=== PATIENT | female | born 1965 | race Caucasian/White ===

== ENCOUNTER 2016-09-17 10:20 | Emergency (ER) | payer BC, OTHER ==
[~2016-09-17] VITALS: Ht 170.2 cm; Wt 109.2 kg
[~2016-09-17 10:20] MED LIST: B-COTAB18 PO; CHOL2000 PO; CRAN1CAP15 PO; CYM/30 PO; LORA-741 PO; OMEG10007 PO; PANT40TA PO; TOPI50TA16 PO; ZNTT/150 PO
[2016-09-17 10:30] VITALS: TEMP 36; Ht 170.2 cm; Wt 109.2 kg
[2016-09-17] MEDS ORDERED: BND25 PO (11:00)
--- NOTE | 2016-09-17 11:11 | EMERGENCY ROOM VISIT NOTE ---
History First contact with patient: 10:57 Chief Complaint: SHORTNESS OF BREATH Stated Complaint: SOB, LIGHTHEADED, CHEST PAIN X 2 DAYS AGO Nursing Triage Summary: chest pain with SOB and nausea for the past 2 days no cough or cold no LE edema History of Present Illness The patient is a 51 year old female who presents to the Emergency Room via private vehicle accompanied by with complaints of "shortness of breath, lightheaded, chest pain 2 days ago". The patient states that this past Tuesday shortly after scrubbing the floor in her house she developed pain in the left anterior chest. This pain then subsided and she felt well yesterday as she stayed home from work but this morning as she was preparing to go to work she felt worse, minor left anterior chest pain as well as shortness of breath and lightheadedness. She then sat down and states that the chest pain has resolved. She also notes that she has had shortness of breath off and on for some time now. She denies any current symptomatology. There is associated minimal nausea. The patient states that she was in the hospital last year around this time with chest pain and ended up being acid reflux. She states this does not feel the same as reflux. She denies any vomiting, diarrhea, history of heart attacks, history of blood clots, fevers, chills, abdominal pain , dysuria, pelvic discharge, history of high blood pressure, diabetes, recent smoking. She does have borderline cholesterol. No unilateral weakness or speech disturbance. She did have recent surgery in June for an umbilical hernia. Review of Systems A complete 10-point Review of Systems was discussed with the patient, with pertinent positives and negatives listed in the History of Present Illness. All remaining Review of Systems questions can be considered negative unless otherwise specified. Past Medical/Surgical History Medical Problems: (1) No pertinent past medical history Bronchitis, urinary problems, hernia, uterine ablation, tubal ligation, wisdom teeth removal, fibromyalgia, tremors, migraines Family History No pertinent family history Cancer, lung disease, gallbladder disease, kidney disease or stones, tremors, neurofibromatosis Social History Smoking Status: Former Smoker Drug Use: none Marital Status: Housing Status: lives with family Social History: Patient lives at home with spouse and daughter. Current/Historical Medications Scheduled B-Complex Vitamins (Vitamin B Complex), 1 TAB PO QAM Cholecalciferol (Vitamin D3), 1 CAP PO DAILY Cranberry-Vitamin C-Vitamin E (Cranberry), 1 TAB PO QPM Duloxetine Hcl (Cymbalta), 30 MG PO QPM Fish Oil ([place]-3), 1 CAP PO QAM Pantoprazole (Protonix), 40 MG PO QAM Ranitidine (Zantac), 150 MG PO QPM PRN Topiramate (Topamax), 50 MG PO BID Scheduled PRN Diphenhydramine Hcl (Benadryl), 25 MG PO HS PRN for Sleep Lorazepam (Ativan), 0.5-1 MG PO HS PRN for RN Allergies Coded Allergies: Nitrofurantoin (Unverified Allergy, Mild, HIVES, 09/17/16) Penicillins (Unverified Allergy, Mild, HIVES, 09/17/16) Sulfa Antibiotics (Verified Allergy, Mild, "SULFA DRUGS": HIVES, 09/17/16) Amoxicillin (Unverified Allergy, Unknown, HIVES, 09/17/16) Levofloxacin (Verified Allergy, Unknown, HIVES, 09/17/16) Physical Exam Vital Signs Date Time Temp Pulse Resp B/P Pulse Ox O2 Delivery O2 Flow Rate FiO2 09/17/16 15:49 76 20 118/86 96 09/17/16 14:09 85 09/17/16 13:25 85 20 136/81 98 09/17/16 11:53 76 131/89 98 09/17/16 10:49 80 09/17/16 10:30 36.0 96 17 130/88 98 Room Air Physical Exam VITAL SIGNS - Vital signs and nursing notes were reviewed. Patient is afebrile , she is normotensive, she is not tachycardic and is saturating well on room air at 98%. GENERAL -51-year-old female appearing her stated age who is in no acute distress. Communicates well with provider and answers questions appropriately. SKIN - Without rashes. No evidence of breaks in the integument. HEAD - NC/AT. EYES - PERRL with EOMI bilaterally. Sclera anicteric. Palpebral conjunctiva pink and moist with no injection noted. EARS - No deformities of external structures noted on gross examination bilaterally. No hemotympanum External auditory canals without discharge or otorrhea. Tympanic membranes pearly pardo without retraction or bulging. No fluid or purulent material visualized behind the TM. Handle of malleus, umbo, cone of light, pars tensa/flaccid all easily visualized. NOSE - Midline and without cyanosis. No epistaxis or purulent drainage noted. Septum midline without deviation or septal hematoma noted. MOUTH/OROPHARYNX - Without perioral cyanosis. Buccal mucosa pink and moist and without leukoplakia. Tongue midline with equal elevation of palate bilaterally. No tonsillar hypertrophy, erythema, or exudates noted. Good dentition noted. NECK - Neck with FROM. Supple to palpation. No lymphadenopathy noted. No nuchal rigidity. No meningeal signs. LUNGS - Chest wall symmetric without accessory muscle use, intercostals retractions, or central cyanosis. Normal vesicular breath sounds CTA B/L. No wheezes, rales, or rhonchi appreciated. CARDIAC - RRR with S1/S2. No murmur, rubs, or gallops appreciated. ABDOMEN - Abdominal contour without pulsations or visible masses. BS normoactive all four quadrants. No tenderness, palpable masses, hepatosplenomegaly, or ascites noted. EXTREMITIES - No clubbing or peripheral cyanosis. No pretibial edema present. +5 /5 strength noted in UE/LE bilaterally. NEUROLOGIC - Cranial nerves II through XII grossly intact. Sensory intact to light touch throughout. PSYCH - A&Ox3 and cooperates fully with examiner. Pt is very pleasant and interacts well with examiner. Medical Decision & Procedures ER Provider Diagnostic Interpretation: CHEST ONE VIEW PORTABLE CLINICAL HISTORY: Chest pain, SOB COMPARISON STUDY: 08/05/2016 FINDINGS: The cardiac and mediastinal contours are normal. There is no evidence of focal pulmonary consolidation. There is no evidence of failure. No pleural effusions are visualized.[ There is slight deviation of the trachea at the thoracic inlet to the midline. This may indicate a thoracic inlet mass such as a thyroid goiter. This finding remains unchanged the prior study. IMPRESSION: No active disease in the chest. Electronically signed by: Dneis Price M.D. 09/17/2016 12:08 PM Dictated Date/Time: 09/17/2016 12:08 PM [~ rep ct add3]] CT HEAD WITHOUT CONTRAST (CT) CLINICAL HISTORY: Dizziness, lightheadedness, stumbling. COMPARISON STUDY: MRI the brain dated to 71 TECHNIQUE: Axial CT of the brain is performed from the vertex to the skull base. IV contrast was not administered for this examination. CT DOSE: 638.56 mGycm FINDINGS: No intra or extra-axial mass lesions are visualized. There is no CT evidence of acute cortical infarction. There is no evidence of midline shift. There is no acute hemorrhage. No calvarial fractures are visualized. There is no evidence of pathologic ventricular dilatation. There is no evidence of acute sinusitis IMPRESSION: Normal noncontrast head CT for age. Electronically signed by: Denis Price M.D. 09/17/2016 11:46 AM Dictated Date/Time: 09/17/2016 11:[address] ANGIOGRAPHY OF THE CHEST, PULMONARY EMBOLUS PROTOCOL CLINICAL HISTORY: Dyspnea, chest pain and elevated d-dimer. Recent surgery. COMPARISON STUDY: Chest radiograph August 05, 2016 and September 17, 2016. TECHNIQUE: Following IV administration of 118 mL of Optiray-320, helical axial images of the chest were obtained utilizing the pulmonary embolus protocol. Maximal intensity projections and sagittal and coronal reformats were viewed on an independent 3D workstation. IV contrast was administered without complication. CT DOSE: 602.14 mGy.cm FINDINGS: No pulmonary emboli are identified. The heart is mildly enlarged. There is no pericardial effusion. There is no evidence of thoracic aortic dissection. Central airways are patent. No pneumothorax or pleural effusion is present. There are groundglass opacities with mosaic attenuation within the lungs. No consolidation is identified. The bony thorax and visualized portions of the upper abdomen are unremarkable. IMPRESSION: 1. No pulmonary emboli identified. 2. Ground glass opacities with mosaic attenuation within the lungs. The findings may reflect air trapping or mild edema. No consolidation. 3. Mild cardiomegaly. Electronically signed by: Lance Najera M.D. 09/17/2016 1:02 PM Dictated Date/Time: 09/17/2016 12:52 PM Laboratory Results 09/17/16 10:52 Red Blood Count 4.90, Mean Corpuscular Volume 85.1, Mean Corpuscular Hemoglobin 28.6, Mean Corpuscular Hemoglobin Concent 33.6, Mean Platelet Volume 9.6, Neutrophils (%) (Auto) 63.8, Lymphocytes (%) (Auto) 23.9, Monocytes (%) (Auto) 7.4, Eosinophils (%) (Auto) 4.0, Basophils (%) (Auto) 0.7, Neutrophils # (Auto) 3.82, Lymphocytes # (Auto) 1.43, Monocytes # (Auto) 0.44, Eosinophils # (Auto) 0.24, Basophils # (Auto) 0.04 09/17/16 10:52 Test 09/17/16 10:52 09/17/16 11:27 09/17/16 14:02 09/17/16 14:06 White Blood Count 5.98 K/uL (4.8-10.8) Red Blood Count 4.90 M/uL (4.2-5.4) Hemoglobin 14.0 g/dL (12.0-16.0) Hematocrit 41.7 % (37-47) Mean Corpuscular Volume 85.1 fL (80-100) Mean Corpuscular Hemoglobin 28.6 pg (25-34) Mean Corpuscular Hemoglobin Concent 33.6 g/dl (32-36) Platelet Count 293 K/uL (130-400) Mean Platelet Volume 9.6 fL (7.4-10.4) Neutrophils (%) (Auto) 63.8 % Lymphocytes (%) (Auto) 23.9 % Monocytes (%) (Auto) 7.4 % Eosinophils (%) (Auto) 4.0 % Basophils (%) (Auto) 0.7 % Neutrophils # (Auto) 3.82 K/uL (1.4-6.5) Lymphocytes # (Auto) 1.43 K/uL (1.2-3.4) Monocytes # (Auto) 0.44 K/uL (0.11-0.59) Eosinophils # (Auto) 0.24 K/uL (0-0.5) Basophils # (Auto) 0.04 K/uL (0-0.2) RDW Standard Deviation 42.2 fL (36.4-46.3) RDW Coefficient of Variation 13.5 % (11.5-14.5) Immature Granulocyte % (Auto) 0.2 % Immature Granulocyte # (Auto) 0.01 K/uL (0.00-0.02) Prothrombin Time 10.4 SECONDS (9.0-12.0) Prothromb Time International Ratio 1.0 (0.9-1.1) Activated Partial Thromboplast Time 30.5 SECONDS (21.0-31.0) Partial Thromboplastin Ratio 1.2 D-Dimer 1430 ug/L FEU (0-500) Anion Gap 9.0 mmol/L (3-11) Est Creatinine Clear Calc Drug Dose 69.8 ml/min Estimated GFR () 60.2 Estimated GFR (Non- 51.9 BUN/Creatinine Ratio 12.1 (10-20) Calcium Level 9.0 mg/dl (8.5-10.1) Total Bilirubin 0.2 mg/dl (0.2-1) Aspartate Amino Transf (AST/SGOT) 11 U/L (15-37) Alanine Aminotransferase (ALT/SGPT) 26 U/L (12-78) Alkaline Phosphatase 125 U/L (45-117) Total Creatine Kinase 50 U/L (26-192) Creatine Kinase MB < 0.5 ng/ml (0.5-3.6) Creatine Kinase MB Ratio (0-3.0) Total Protein 7.5 gm/dl (6.4-8.2) Albumin 3.6 gm/dl (3.4-5.0) Globulin 3.9 gm/dl (2.5-4.0) Albumin/Globulin Ratio 0.9 (0.9-2) Lipase 117 U/L (73-393) Thyroid Stimulating Hormone (TSH) 2.960 uIu/ml (0.300-4.500) Bedside D-Dimer > 450 ng/mlFEU (0-450) Bedside Troponin I 0.010 ng/ml (0-0.045) AH-Vbw-B-Type Natriuretic Peptide 51 pg/ml (0-900) Urine Color DK YELLOW Urine Appearance CLEAR (CLEAR) Urine pH 7.5 (4.5-7.5) Urine Specific [place] 1.012 (1.000-1.030) Urine Protein NEG (NEG) Urine Glucose (UA) NEG (NEG) Urine Ketones NEG (NEG) Urine Occult Blood NEG (NEG) Urine Nitrite NEG (NEG) Urine Bilirubin NEG (NEG) Urine Urobilinogen NEG (NEG) Urine Leukocyte Esterase NEG (NEG) Influenza Type A (RT-PCR) Neg for Influ A (NEG) Influenza Type A Antigen Neg for Influ A (NEG) Influenza Type B Antigen Neg for Influ B (NEG) Influenza Type B (RT-PCR) Neg for Influ B (NEG) Medical Decision Patient was seen and evaluated as above. After obtaining a thorough history and physical examination I elected to order a stat EKG, apply monitor with continuous pulse ox, initiated IV access and obtain a CT of the head, CBC, CK-MB , see MB, CPK, d-dimer, lipase, TSH, UA clean catch culture if indicated, coagulation studies, [id number] BNP, d-dimer and troponin, chest 1 view portable secondary to subjective and objective examination findings. The patient was asymptomatic upon presentation and was just concerned that she has had left anterior chest pain. Her vitals are stable during her time here in the emergency department. CBC was completely unremarkable. There was no leukocytosis or anemia. Coagulation studies did reveal a within normal limits coagulation cascade, however d-dimer was elevated both [id number] and repeat regular lab d-dimer. This prompted a CT scan of the chest. The CMP revealed a slight elevation in chloride, low AST, elevated alkaline phosphatase at 125, and low CK-MB. Point care troponin was within normal limits. No evidence of heart failure. TSH was within normal limits. The urine was unremarkable. I then elected to obtain a flu swab both rapid and PCR. These were all negative. The chest 1 view portable was unremarkable for acute process but did reveal slight tracheal deviation which was discussed with the patient. This was unchanged from previous study. CT the head was ordered secondary to her having the dizziness and feeling like she was stumbling lately this did not reveal any acute process. The CTA of the chest was also performed secondary to the chest pain and elevated d-dimer, which did not reveal any acute process but did reveal groundglass opacities which was discussed with patient. It is recommended she follow up with a rail specialist for this and she was given a number to call as soon as possible. My attending also personally evaluated the patient. At this time we both agree the patient is likely experiencing a viral process causing her symptomatology and in correlation with her lab work I do not suspect any acute or emergent cardiac or pulmonary causes. I do believe the patient can be managed in the outpatient setting. They were educated upon worrisome symptoms in which to return, were educated upon today's findings to include incidental findings, had questions answered prior to discharge, and were discharged home in good condition. Her EKG appeared to be unchanged from previous. In the evaluation and treatment of this patient following differential diagnoses were entertained: Intracranial abnormality, thyroid abnormality, viral process, pneumonia, acute coronary syndrome, myocardial infarction, pericarditis, pleural effusion, among others. I this time do not suspect any emergent or surgical nature to the patient's pain. Impression Primary Impression: Chest pain Additional Impressions: Alkaline phosphatase elevation Elevated d-dimer Tracheal deviation Ground glass opacity present on imaging of lung Departure Information Dispostion Home / Self-Care Condition GOOD Referrals Matteo Knox M.D. (PCP) Jostin Bonner MD Patient Instructions My [facility] Additional Instructions You were seen in the emergency department for chest pain. Your EKG was unchanged from previous, and her heart chemicals were normal. No evidence of blood clot in the lung. We did find the below findings. There is slight deviation of the trachea at the thoracic inlet to the midline. This may indicate a thoracic inlet mass such as a thyroid goiter. Ground glass opacities with mosaic attenuation within the lungs. The findings may reflect air trapping or mild edema. No consolidation. Please follow up with her family doctor and the lung specialist listed above for this. Please call your family doctor first thing tomorrow to schedule follow-up as well as Dr. Bonner (Lung specialist). Please have basic labs such as a CBC and CMP repeated. Alkaline phosphatase was elevated. Please have these repeated with your family doctor. Please return to the emergency department with new/concerning symptoms. Problem Qualifiers Primary Impression: Chest pain Chest pain type: unspecified Qualified Codes: R07.9 - Chest pain, unspecified
[2016-09-17 11:23] LABS: BASO % 0.7 %; BASO ABS # 0.04 K/uL (0-0.2); COMPLETE YES; HEMATOCRIT 41.7 % (37-47); IG% 0.2 %; LYMPH % 23.9 %; LYMPH ABS # 1.43 K/uL (1.2-3.4); MEAN CELL VOLUME 85.1 fL (80-100); MEAN CORPUSCULAR HEMOGLOBIN 28.6 pg (25-34); MEAN CORPUSCULAR HGB CONC 33.6 g/dl (32-36); MEAN PLATELET VOLUME 9.6 fL (7.4-10.4); MONO % 7.4 %; NEUT % 63.8 %; PLATELET COUNT 293 K/uL (130-400); WHITE BLOOD COUNT 5.98 K/uL (4.8-10.8)
[2016-09-17 11:31] LABS: ALT/SGPT 26 U/L (12-78); AST/SGOT 11 U/L (15-37); BLOOD UREA NITROGEN 15 mg/dl (7-18); BUN/CREATININE RATIO 12.1 (10-20); CARBON DIOXIDE 24 mmol/L (21-32); CHLORIDE 110 mmol/L (98-107); GLUCOSE 92 mg/dl (70-99); POTASSIUM 3.5 mmol/L (3.5-5.1); SODIUM 143 mmol/L (136-145)
[2016-09-17 11:38] LABS: PARTIAL THROMBOPLASTIN RATIO 1.2; PROTHROMBIN TIME (PATIENT) 10.4 SECONDS (9.0-12.0)
[2016-09-17 11:42] LABS: ALB/GLOB RATIO 0.9 (0.9-2); ALKALINE PHOSPHATASE 125 U/L (45-117)
[2016-09-17 11:46] LABS: POINT OF CARE PRO-BNP 51 pg/ml (0-900)
--- NOTE | 2016-09-17 11:47 | DIAGNOSTIC IMAGING REPORT ---
CT HEAD WITHOUT CONTRAST (CT) CLINICAL HISTORY: Dizziness, lightheadedness, stumbling. COMPARISON STUDY: MRI the brain dated to TECHNIQUE: Axial CT of the brain is performed from the vertex to the skull base. IV contrast was not administered for this examination. CT DOSE: 638.56 mGycm FINDINGS: No intra or extra-axial mass lesions are visualized. There is no CT evidence of acute cortical infarction. There is no evidence of midline shift. There is no acute hemorrhage. No calvarial fractures are visualized. There is no evidence of pathologic ventricular dilatation. There is no evidence of acute sinusitis IMPRESSION: Normal noncontrast head CT for age. Electronically signed by: Denis Price M.D. 09/17/2016 11:46 AM Dictated Date/Time: 09/17/2016 11:45 AM
[2016-09-17] MEDS ORDERED: OPTIRAY 320 IV PRN (12:00)
--- NOTE | 2016-09-17 12:10 | DIAGNOSTIC IMAGING REPORT ---
CHEST ONE VIEW PORTABLE CLINICAL HISTORY: Chest pain, SOB COMPARISON STUDY: 08/05/2016 FINDINGS: The cardiac and mediastinal contours are normal. There is no evidence of focal pulmonary consolidation. There is no evidence of failure. No pleural effusions are visualized.[ There is slight deviation of the trachea at the thoracic inlet to the midline. This may indicate a thoracic inlet mass such as a thyroid goiter. This finding remains unchanged the prior study. IMPRESSION: No active disease in the chest. Electronically signed by: Denis Price M.D. 09/17/2016 12:08 PM Dictated Date/Time: 09/17/2016 12:08 PM
--- NOTE | 2016-09-17 13:04 | DIAGNOSTIC IMAGING REPORT ---
CT ANGIOGRAPHY OF THE CHEST, PULMONARY EMBOLUS PROTOCOL CLINICAL HISTORY: Dyspnea, chest pain and elevated d-dimer. Recent surgery. COMPARISON STUDY: Chest radiograph August 05, 2016 and September 17, 2016. TECHNIQUE: Following IV administration of 118 mL of Optiray-320, helical axial images of the chest were obtained utilizing the pulmonary embolus protocol. Maximal intensity projections and sagittal and coronal reformats were viewed on an independent 3D workstation. IV contrast was administered without complication. CT DOSE: 602.14 mGy.cm FINDINGS: No pulmonary emboli are identified. The heart is mildly enlarged. There is no pericardial effusion. There is no evidence of thoracic aortic dissection. Central airways are patent. No pneumothorax or pleural effusion is present. There are groundglass opacities with mosaic attenuation within the lungs. No consolidation is identified. The bony thorax and visualized portions of the upper abdomen are unremarkable. IMPRESSION: 1. No pulmonary emboli identified. 2. Ground glass opacities with mosaic attenuation within the lungs. The findings may reflect air trapping or mild edema. No consolidation. 3. Mild cardiomegaly. Electronically signed by: Lance Najera M.D. 09/17/2016 1:02 PM Dictated Date/Time: 09/17/2016 12:52 PM
[2016-09-17 14:37] LABS: URINE APPEARANCE CLEAR (CLEAR); URINE BILIRUBIN NEG (NEG); URINE COLOR DK YELLOW; URINE NITRITE NEG (NEG); URINE PH 7.5 (4.5-7.5); URINE SPECIFIC GRAVITY 1.012 (1.000-1.030); UROBILINOGEN NEG (NEG); ZZUR CULT IF INDIC CLEAN CATCH NO
[2016-09-17 14:49] LABS: MANUAL MICROSCOPIC REQUIRED? NO; REVIEW REQ? NO
--- NOTE | 2016-09-17 15:25 | EMERGENCY ROOM VISIT NOTE ---
ED Visit Note First contact with patient: 10:57 I have personally evaluated and examined this patient. I agree with assessment and plan of Prosper Sanders PA-C. Patient is a 51-year-old female without significant past medical history who presents with a greater than 24-hour history of chest pain. D-dimer was initially elevated prompted a CT scan of the chest, CT scan of the chest revealed groundglass opacities. I personally evaluated the patient there is no evidence of hypoxic aspiratory failure, she is not tachypnic contrary to the vital signs listed in the chart. I explained the differential, I think this represents a viral process, interstitial lung disease has not been ruled out, and she does not have any high risk factors requiring Tamiflu. Accordingly I have advised her to follow-up with her primary care doc in 2-3 weeks for repeat evaluation and we have given her contact information for Dr. Bonner of pulmonology.
[2016-09-17 15:49] VITALS: BP 118/86; PULSE 76; O2SAT 96
[2016-09-17 16:11] LABS: INFLUENZA A PCR Neg for Influ A (NEG); INFLUENZA B PCR Neg for Influ B (NEG)
[2016-10-13] MEDS ORDERED: VNTHFA/IN INH (11:07)
[2016-10-13] MEDS ORDERED: ACET-1311 PO (11:08)
== END 2016-09-17 15:51 | disposition home or self-care (01) ==
LOC: C.EDB 10:22 → C.EDC 15:51
DX: R07.9 Chest pain, unspecified (principal); R74.8 Abnormal levels of other serum enzymes; J39.8 Other specified diseases of upper respiratory tract; J81.1 Chronic pulmonary edema; I51.7 Cardiomegaly; Z87.891 Personal history of nicotine dependence; Z79.899 Other long term (current) drug therapy; Z88.0 Allergy status to penicillin; Z88.1 Allergy status to other antibiotic agents; Z88.2 Allergy status to sulfonamides; Z88.8 Allergy status to other drugs, medicaments and biological substances; Z80.9 Family history of malignant neoplasm, unspecified; Z83.79 Family history of other diseases of the digestive system; Z84.1 Family history of disorders of kidney and ureter

== ENCOUNTER 2016-09-20 09:28 | Emergency (ER) | payer BC ==
[~2016-09-20] VITALS: Ht 170.2 cm; Wt 107.9 kg
[~2016-09-20 09:28] MED LIST changes: +BND25 PO
[2016-09-20 09:30] VITALS: TEMP 36.3; Ht 170.2 cm; Wt 107.9 kg
[2016-09-20 09:52] VITALS: O2SAT 96
[2016-09-20] MEDS ORDERED: MULT-506 PO (10:07)
[2016-09-20 10:38] LABS: BASO % 0.7 %; BASO ABS # 0.04 K/uL (0-0.2); COMPLETE YES; HEMATOCRIT 44.1 % (37-47); IG% 0.2 %; LYMPH % 33.8 %; LYMPH ABS # 1.89 K/uL (1.2-3.4); MEAN CELL VOLUME 84.3 fL (80-100); MEAN CORPUSCULAR HEMOGLOBIN 28.3 pg (25-34); MEAN CORPUSCULAR HGB CONC 33.6 g/dl (32-36); MEAN PLATELET VOLUME 9.7 fL (7.4-10.4); MONO % 8.4 %; NEUT % 53.9 %; PLATELET COUNT 303 K/uL (130-400); RED BLOOD COUNT 5.23 M/uL (4.2-5.4); WHITE BLOOD COUNT 5.59 K/uL (4.8-10.8)
[2016-09-20] MEDS ORDERED: CEFEPIME IV 1,000 MG in DEXTROSE 5% 100ML 100 ML IV STA (10:44)
--- NOTE | 2016-09-20 10:44 | DIAGNOSTIC IMAGING REPORT ---
CHEST ONE VIEW PORTABLE CLINICAL HISTORY: Chest Pain dyspnea COMPARISON STUDY: 09/17/2016 FINDINGS: Lungs remain clear. Diaphragms smooth. Costophrenic angles are sharp. Left superior matter. Mediastinal soft tissue prominence is unaltered. This is most consistent with that as of a substernal thyroid. IMPRESSION: No acute process. Lungs are considered clear. Electronically signed by: Anibal Plunkett M.D. 09/20/2016 10:42 AM Dictated Date/Time: 09/20/2016 10:40 AM
[2016-09-20 10:52] LABS: BLOOD UREA NITROGEN 17 mg/dl (7-18); BUN/CREATININE RATIO 15.7 (10-20); CALCIUM 9.7 mg/dl (8.5-10.1); CARBON DIOXIDE 23 mmol/L (21-32); CHLORIDE 108 mmol/L (98-107); GLUCOSE 95 mg/dl (70-99); POTASSIUM 3.9 mmol/L (3.5-5.1); SODIUM 142 mmol/L (136-145)
[2016-09-20 15:57] VITALS: BP 125/81; PULSE 79; O2SAT 97
--- NOTE | 2016-09-20 16:04 | EMERGENCY ROOM VISIT NOTE ---
History Report prepared by La: Maryjo Huynh Under the Supervision of: Dr. Marcos Holley D.O. First contact with patient: 10:11 Chief Complaint: SHORTNESS OF BREATH Stated Complaint: SOB, CHEST PAIN Nursing Triage Summary: pt c/o sob and weakness sx started tuesday was seen here tuesday. sx not getting better. dx with lung problem cannot get in until next week History of Present Illness The patient is a 51 year old female who presents to the Emergency Room with complaints of persistent shortness of breath that began 2-3 months ago, but worsened on Tuesday. She currently rates her discomfort as a 4/10 in severity. The patient states that she has noticed the shortness of breath all the time, but states that it had worsened on Tuesday. She states that she was evaluated in the emergency department Tuesday and her work up was fairly normal. The patient states that she developed chest burning on Tuesday, and has additionally described her discomfort as a heaviness and sharp pain. She states that her chest discomfort has been intermittent and notices it after exertion, such as cleaning. The patient states that she noticed heaviness in her chest last night, and noticed burning this morning. She states that her discomfort was alleviated on her way to the emergency department this morning. The patient notes arm numbness, but is unsure if she slept on her arm wrong. She notes that she started with a cough yesterday, stating that she started using peak flow. The patient notes bilateral leg swelling. She states that she has had a feeling of being unwell for the past several days. The patient denies any history of asthma, COPD, diabetes, or heard disease. She denies any history of heart disease. The patient denies being a smoker. Pt denies headache, change in vision, fevers, nausea, vomiting, diarrhea, pain with urination, and melena. Source of History: patient Onset: 2-3 months ago Position: other (global) Symptom Intensity: 4/10 Quality: other (shortness of breath) Timing: other (persistent) Associated Symptoms: + chest pain Review of Systems See HPI for pertinent positives & negatives. A total of 10 systems reviewed and were otherwise negative. Past Medical & Surgical Medical Problems: (1) No pertinent past medical history Family History No pertinent family history Social History Smoking Status: Never Smoker Drug Use: none Marital Status: Housing Status: lives with family Current/Historical Medications Scheduled B-Complex Vitamins (Vitamin B Complex), 1 TAB PO QAM Cholecalciferol (Vitamin D3), 1 CAP PO DAILY Cranberry-Vitamin C-Vitamin E (Cranberry), 1 TAB PO QPM Duloxetine Hcl (Cymbalta), 30 MG PO QPM Fish Oil (Remus-3), 1 CAP PO QAM Multivitamin (Multivitamin), 1 TAB PO DAILY Pantoprazole (Protonix), 40 MG PO QAM Ranitidine (Zantac), 150 MG PO QPM PRN Topiramate (Topamax), 50 MG PO BID Scheduled PRN Diphenhydramine Hcl (Benadryl), 25 MG PO HS PRN for Sleep Lorazepam (Ativan), 0.5-1 MG PO HS PRN for RN Allergies Coded Allergies: Nitrofurantoin (Unverified Allergy, Mild, HIVES, 09/20/16) Penicillins (Unverified Allergy, Mild, HIVES, 09/20/16) Sulfa Antibiotics (Verified Allergy, Mild, "SULFA DRUGS": HIVES, 09/20/16) Amoxicillin (Unverified Allergy, Unknown, HIVES, 09/20/16) Levofloxacin (Verified Allergy, Unknown, HIVES, 09/20/16) Physical Exam Vital Signs Date Time Temp Pulse Resp B/P Pulse Ox O2 Delivery O2 Flow Rate FiO2 09/20/16 15:57 79 18 125/81 97 Room Air 09/20/16 14:54 77 16 119/80 96 09/20/16 13:10 85 14 103/72 96 Room Air 09/20/16 12:09 70 15 107/73 98 Room Air 09/20/16 10:49 76 14 120/75 96 Room Air 09/20/16 09:52 96 Room Air 09/20/16 09:52 73 17 96 Room Air 09/20/16 09:51 72 09/20/16 09:30 98 Room Air 09/20/16 09:30 36.3 83 20 144/94 98 Room Air Physical Exam GENERAL: Sitting up in bed, disheveled, nontoxic. EYE EXAM: normal conjunctiva. OROPHARYNX: no exudate, no erythema, lips, buccal mucosa, and tongue normal and mucous membranes are moist NECK: No JVD. supple, no nuchal rigidity, no adenopathy, non-tender LUNGS: Clear to auscultation. Normal chest wall mechanics HEART: no murmurs, S1 normal and S2 normal ABDOMEN: abdomen soft, non-tender, normo-active bowel sounds, no masses, no rebound or guarding. BACK: Back is symmetrical on inspection and there is no deformity, no midline tenderness, no CVA tenderness. SKIN: no rashes and no bruising UPPER EXTREMITIES: upper extremities are grossly normal. LOWER EXTREMITIES: No pitting edema. Calves are equal bilaterally. NEURO EXAM: Normal sensorium, cranial nerves II-XII grossly intact, normal speech, no gross weakness of arms, no gross weakness of legs. No drift. Finger to nose intact. Gross sensation intact. Medical Decision & Procedures ER Provider Diagnostic Interpretation: Xray results per the radiologist and my interpretation. Other results have been interpreted by the radiologist and reviewed by me. CHEST ONE VIEW PORTABLE CLINICAL HISTORY: Chest Pain dyspnea COMPARISON STUDY: 09/17/2016 FINDINGS: Lungs remain clear. Diaphragms smooth. Costophrenic angles are sharp. Left superior matter. Mediastinal soft tissue prominence is unaltered. This is most consistent with that as of a substernal thyroid. IMPRESSION: No acute process. Lungs are considered clear. Electronically signed by: Anibal Plunkett M.D. 09/20/2016 10:42 AM Dictated Date/Time: 09/20/2016 10:40 AM Laboratory Results 09/20/16 09:42 Red Blood Count 5.23, Mean Corpuscular Volume 84.3, Mean Corpuscular Hemoglobin 28.3, Mean Corpuscular Hemoglobin Concent 33.6, Mean Platelet Volume 9.7, Neutrophils (%) (Auto) 53.9, Lymphocytes (%) (Auto) 33.8, Monocytes (%) (Auto) 8.4, Eosinophils (%) (Auto) 3.0, Basophils (%) (Auto) 0.7, Neutrophils # (Auto) 3.01, Lymphocytes # (Auto) 1.89, Monocytes # (Auto) 0.47, Eosinophils # (Auto) 0.17, Basophils # (Auto) 0.04 09/20/16 09:42 Test 09/20/16 09:42 09/20/16 10:50 09/20/16 12:02 White Blood Count 5.59 K/uL (4.8-10.8) Red Blood Count 5.23 M/uL (4.2-5.4) Hemoglobin 14.8 g/dL (12.0-16.0) Hematocrit 44.1 % (37-47) Mean Corpuscular Volume 84.3 fL (80-100) Mean Corpuscular Hemoglobin 28.3 pg (25-34) Mean Corpuscular Hemoglobin Concent 33.6 g/dl (32-36) Platelet Count 303 K/uL (130-400) Mean Platelet Volume 9.7 fL (7.4-10.4) Neutrophils (%) (Auto) 53.9 % Lymphocytes (%) (Auto) 33.8 % Monocytes (%) (Auto) 8.4 % Eosinophils (%) (Auto) 3.0 % Basophils (%) (Auto) 0.7 % Neutrophils # (Auto) 3.01 K/uL (1.4-6.5) Lymphocytes # (Auto) 1.89 K/uL (1.2-3.4) Monocytes # (Auto) 0.47 K/uL (0.11-0.59) Eosinophils # (Auto) 0.17 K/uL (0-0.5) Basophils # (Auto) 0.04 K/uL (0-0.2) RDW Standard Deviation 41.3 fL (36.4-46.3) RDW Coefficient of Variation 13.6 % (11.5-14.5) Immature Granulocyte % (Auto) 0.2 % Immature Granulocyte # (Auto) 0.01 K/uL (0.00-0.02) Anion Gap 11.0 mmol/L (3-11) Est Creatinine Clear Calc Drug Dose 75.7 ml/min Estimated GFR () 66.8 Estimated GFR (Non- 57.7 BUN/Creatinine Ratio 15.7 (10-20) Calcium Level 9.7 mg/dl (8.5-10.1) Total Creatine Kinase 49 U/L (26-192) Creatine Kinase MB < 0.5 ng/ml (0.5-3.6) Creatine Kinase MB Ratio (0-3.0) Influenza Type A Antigen Neg for Influ A (NEG) Influenza Type B Antigen Neg for Influ B (NEG) Troponin I < 0.015 ng/ml (0-0.045) Laboratory results per my review. Medications Administered Medications (Trade) Dose Ordered Sig/Stan Route Start Time Stop Time Status Last Admin Dose Admin Cefepime HCl/ Dextrose (Maxipime IV/D5 100ml) 111.3 ml @ 200 mls/hr ONE STAT IV 09/20/16 10:44 09/20/16 10:47 DC 09/20/16 11:55 200 MLS/HR ECG Indication: chest pain, SOB/dyspnea Rate (beats per minute): 73 Rhythm: sinus rhythm Findings: no ectopy, other (normal axis) Comparison ECG Date: 09/17/16 Change: no significant change ED Course ED COURSE: Vital signs were reviewed and showed normal vitals The patients medical record was reviewed The above diagnostic studies were performed and reviewed. ED treatments and interventions as stated above. 1012: The patient was evaluated in room A10. A complete history and physical examination was performed. 1044: Ordered Cefepime HCl 1000 mg/Dextrose 111.3 ml @ 200 mls/hr IV. 1149: I reevaluated the patient and she is doing okay. I discussed her exam findings with her. She is going to have a redraw of her troponin and is going to have a stress test. 1204: I spoke to Baljit Rasmussen, Cardiology YASH regarding the patient. He is going to stress the patient. 1541: I rediscussed the patients case with Dr. Finch, Cardiology. He states that the echo looks great and states that the patient is ready to go home. 1550: Upon reevaluation, the patient is resting comfortably.I discussed my findings with the patient and she understands and agrees with the treatment plan. Based on the patients age, coexisting illnesses, exam and lab findings the decision to treat as an outpatient was made. The patient remained stable while under my care. The patient appeared well at the time of discharge. Medical Decision Differential diagnoses includes but is not limited to pneumonia, bronchitis, COPD/Asthma exacerbation, pneumothorax, pulmonary embolism, congestive heart failure, acute coronary syndrome, myocardial infarction, pericarditis, pulmonary embolus, aortic dissection, pneumonia, pneumothorax, musculoskeletal, shingles, esophageal. Patient is a 51-year-old female who presents the ER for shortness of breath which has been worsening for the past several months. It has worsened over the past several days. She notes that she is having exertional chest pain associated with this. She was seen here on Tuesday and had a cardiac workup along with a CT PE for a positive d-dimer which was negative with the exception of groundglass. CBC along with BMP and troponin was negative 2. Influenza A and B were negative. Chest x-ray was unremarkable. With her symptoms and her age she is a low risk for cardiac issues and consequently a stress test was performed which was negative per cardiology. Patient was discharged to follow- up with her PCP. I do believe the symptoms are secondary to the groundglass opacity in her lower lobe which does not appear to be infectious as she has no fevers or new cough. There is no respiratory distress. She is discharged feeling significantly better to follow-up with her primary care doctor. Discussed with Pt concerning signs and symptoms to watch out for. Pt was instructed to follow up with their PCP and discussed with the patient their option to return to the ED at anytime for persistent or worsening symptoms. The appropriate anticipatory guidance and out-patient management, including indications for return to the emergency department, were explained at length to the patient and understood. Consults Time Called: 1155 Consulting Physician: Jamil Barrios PA-C Returned Call: 1204 I spoke to Jamil Barrios PA-C regarding the patient. He is going to stress the patient. Impression Primary Impression: Precordial chest pain Additional Impression: Shortness of breath Scribe Attestation The scribe's documentation has been prepared under my direction and personally reviewed by me in its entirety. I confirm that the note above accurately reflects all work, treatment, procedures, and medical decision making performed by me. Departure Information Dispostion Home / Self-Care Referrals Matteo Knox M.D. (PCP) Forms HOME CARE DOCUMENTATION FORM, IMPORTANT VISIT INFORMATION Patient Instructions Chest Pain - [facility], [facility] Additional Instructions Please follow up with your primary care doctor with in the next 24 hours. Any worsening of your symptoms, please return to the ED immediately. This includes worsening chest pain with exertion, shortness of breath, passing out, or any other concerning signs or symptoms from your standpoint. Your heart enzymes along with an EKG and stress test were normal. Please be sure to follow-up with her primary care doctor within the week. Please follow with her youth career specialist as previously directed on her last visit. Problem Qualifiers
--- NOTE | 2016-09-20 16:16 | EXERCISE STRESS ECHO ---
*NOTICE TO RECEIVING REPUBLICAN AGENCY This information is strictly Confidential and protected under [place] law. [place] law prohibits you from making any further disclosure of this information unless further disclosure is expressly permitted by the written consent of the person to whom it pertains or is authorized by law. A general authorization for the release of medical or other information is not sufficient for this purpose. Hospital accepts no responsibility if the information is made available to any other person, INCLUDING THE PATIENT. Interpretation Summary * Name: LIZET GARCÍA Study Date: 09/20/2016 12:51 PM BP: 128/82 mmHg * Patient Location: [place] [id number] HR: 100 * : 1965 (M/d/yyyy) Gender: Female Height: 67 in * Age: 51 yrs Ethnicity: [place] Weight: 237 lb * Ordering Physician: Gabo Rasmussen * Performed By: Gretta Carias RDCS * * Reason For Study: Chest pain * BSA: 2.2 m2 * Normal hemodynamic response to exercise. * No significant valvular abnormalities. * The stress ECG response was normal * This was a normal stress echocardiogram. * The stress echocardiogram is negative for inducible ischemia. * RESTING STUDY: Normal left ventricular cavity size, myocardial thickness, wall motion, and systolic function. * Stress wall motion was normal. * No arrhythmia were noted with stress. Procedure Details * ECHOEX, CPT #07804 * A contrast injection of Definity was performed to improve assessment of LV function. * Contrast was injected into an intravenous site in the right arm. * One vial of Definity ultrasound contrast was diluted in normal saline to a total volume of 10 ml. A total of '6' ml of solution was administered during imaging. * Lot # [id number] of Definity utilized for procedure. * Expiration date AUG 07. * The attending nurse who injected the contrast agent was Nitesh Peres RN. Left Ventricle * The left ventricle is normal in size. * There is normal left ventricular wall thickness. * Ejection Fraction = 55-60%. * A full diastolic examination was done with clinical findings of Class I diastolic dysfunction. * Resting wall motion: Normal. Stress wall motion: Appropriate increase in Left ventricular systolic function and decrease in cavity size. No stress induced segmental wall motion abnormalities. * The left ventricular ejection fraction increases normally with stress. The left ventricular end-systolic cavity size reduces post-stress (normal response). The left ventricular wall motion with stress is normal. Right Ventricle * The right ventricle is normal in size and function. Atria * The left atrial size is normal. * Right atrial size is normal. Mitral Valve * The mitral valve is normal. * There is no mitral valve stenosis. * There is no mitral regurgitation noted. Tricuspid Valve * The tricuspid valve is normal. * There is no tricuspid stenosis. * There is trace tricuspid regurgitation. Aortic Valve * The aortic valve is trileaflet. * The aortic valve opens well. * Aortic stenosis is absent. * No aortic regurgitation is present. Pulmonic Valve * The pulmonic valve is not well visualized. * Trace pulmonic valvular regurgitation. Great Vessels * The aortic root is normal size. Pericardium * There is no pericardial effusion. Stress Parameters * Normal sinus rhythm, normal ST segments. * The stress ECG response was normal * The stress portion of this study was personally supervised by the undersigned interpreting physician. * Rest heart rate was '100' BPM. * Rest blood pressure was '128/82' * Maximum heart rate achieved was 184 bpm. * Maximum heart rate was 109 % of maximum age-predicted heart rate. * Maximum blood pressure was '151/75' * Total exercise time was '4:40' * Maximum exercise MET level achieved was '6.60' METS * Maximum treadmill speed was '2.50' miles per hour. * Maximum treadmill elevation was '12.00'% grade. * Exercise was terminated due to 'achieving target heart rate and patient fatique' MMode 2D Measurements and Calculations IVSd 0.93 cm LVIDd 4.1 cm LVIDs 2.8 cm LVPWd 0.75 cm IVS/LVPW 1.2 FS 31.0 % EDV(Teich) 74.9 ml ESV(Teich) 30.6 ml EF(Teich) 59.1 % EDV(cubed) 69.7 ml ESV(cubed) 22.9 ml EF(cubed) 67.1 % LV mass(C)d 104.8 grams LV mass(C)dI 48.2 grams/m\S\2 SV(Teich) 44.3 ml SI(Teich) 20.4 ml/m\S\2 SV(cubed) 46.8 ml SI(cubed) 21.5 ml/m\S\2 Ao root diam 3.1 cm Ao root area 7.6 cm\S\2 ACS 2.3 cm LA dimension 2.6 cm asc Aorta Diam 2.9 cm LA/Ao 0.82 LVAd ap4 21.9 cm\S\2 LVLd ap4 7.6 cm EDV(MOD-sp4) 53.3 ml EDV(sp4-el) 53.6 ml LVAs ap4 12.7 cm\S\2 LVLs ap4 6.5 cm ESV(MOD-sp4) 21.9 ml ESV(sp4-el) 21.0 ml EF(MOD-sp4) 58.8 % EF(sp4-el) 60.8 % LVAd ap2 21.0 cm\S\2 LVLd ap2 7.5 cm EDV(MOD-sp2) 50.1 ml EDV(sp2-el) 49.8 ml LVAs ap2 12.7 cm\S\2 LVLs ap2 6.8 cm ESV(MOD-sp2) 20.2 ml ESV(sp2-el) 20.0 ml EF(MOD-sp2) 59.7 % EF(sp2-el) 59.8 % LVLd %diff -0.60 % EDV(MOD-bp) 51.6 ml LVLs %diff 5.0 % ESV(MOD-bp) 21.6 ml EF(MOD-bp) 58.2 % SV(MOD-sp4) 31.3 ml SI(MOD-sp4) 14.4 ml/m\S\2 SV(MOD-sp2) 29.9 ml SI(MOD-sp2) 13.8 ml/m\S\2 SV(MOD-bp) 30.0 ml SI(MOD-bp) 13.8 ml/m\S\2 SV(sp4-el) 32.6 ml SI(sp4-el) 15.0 ml/m\S\2 SV(sp2-el) 29.8 ml SI(sp2-el) 13.7 ml/m\S\2 Doppler Measurements and Calculations MV E max kun 62.7 cm/sec MV A max kun 79.0 cm/sec MV E/A 0.79 MV dec time 0.32 sec Ao V2 max 111.3 cm/sec Ao max PG 5.0 mmHg Ao max PG (full) 0.82 mmHg LV V1 max PG 4.1 mmHg LV V1 max 101.7 cm/sec PA V2 max 89.6 cm/sec PA max PG 3.2 mmHg PA acc slope 468.3 cm/sec\S\2 PA acc time 0.15 sec PI max kun 149.3 cm/sec PI max PG 8.9 mmHg PI dec slope 149.6 cm/sec\S\2 PI P1/2t 292.3 msec PA pr(Accel) 9.3 mmHg
[2016-10-13] MEDS ORDERED: VNTHFA/IN INH (11:07)
[2016-10-13] MEDS ORDERED: ACET-1311 PO (11:08)
== END 2016-09-20 15:59 | disposition home or self-care (01) ==
LOC: C.EDB 09:29 → C.EDA 15:59
DX: R07.2 Precordial pain (principal); R06.02 Shortness of breath; Z79.899 Other long term (current) drug therapy; Z88.0 Allergy status to penicillin; Z88.1 Allergy status to other antibiotic agents; Z88.2 Allergy status to sulfonamides; Z88.8 Allergy status to other drugs, medicaments and biological substances

== ENCOUNTER 2016-09-21 18:14 | Emergency (ER) | payer BC ==
[~2016-09-21] VITALS: Ht 170.2 cm; Wt 107.5 kg
[~2016-09-21 18:14] MED LIST changes: +MULT-506 PO
[2016-09-21 18:16] VITALS: TEMP 36.9; Ht 170.2 cm; Wt 107.5 kg
[2016-09-21 18:30] VITALS: O2SAT 99
[2016-09-21] MEDS ORDERED: LORAZEPAM 2 MG/ML 1 ML VIAL IV STA (18:33)
--- NOTE | 2016-09-21 18:55 | DIAGNOSTIC IMAGING REPORT ---
SINGLE VIEW CHEST CLINICAL HISTORY: Atypical chest pain. FINDINGS: An AP, portable, upright chest radiograph is compared to study dated 09/20/2016 and correlated with chest CT dated 09/17/2016. The examination is degraded by portable technique, large body habitus, and patient rotation. The cardiomediastinal silhouette is unremarkable. Chronic interstitial thickening is unchanged. The lungs and pleural spaces are clear. No pneumothorax is seen. The skeletal structures are osteopenic. The bony thorax is grossly intact. IMPRESSION: No acute cardiopulmonary abnormality and no change from recent prior studies. Electronically signed by: Rubio Blake M.D. 09/21/2016 6:54 PM Dictated Date/Time: 09/21/2016 6:53 PM
[2016-09-21] MEDS ORDERED: ALUMINUM/MAGNESIUM SUSP 30 ML UDC ONE (19:03)
[2016-09-21] MEDS ORDERED: LIDOCAINE HCL 2% VISC SOLN 20 ML UDC ONE ×2 (19:03→19:06)
[2016-09-21] MEDS: GI COCKTAIL PO STA ×2 (19:05→19:08)
[2016-09-21 20:02] LABS: BASO % 0.2 %; BASO ABS # 0.02 K/uL (0-0.2); COMPLETE YES; EOS % 1.7 %; HEMATOCRIT 41.3 % (37-47); IG% 0.2 %; LYMPH ABS # 1.65 K/uL (1.2-3.4); MEAN CELL VOLUME 84.1 fL (80-100); MEAN CORPUSCULAR HEMOGLOBIN 28.5 pg (25-34); MEAN CORPUSCULAR HGB CONC 33.9 g/dl (32-36); MEAN PLATELET VOLUME 9.7 fL (7.4-10.4); NEUT % 72.9 %; PLATELET COUNT 274 K/uL (130-400); RED BLOOD COUNT 4.91 M/uL (4.2-5.4)
[2016-09-21 20:16] LABS: BLOOD UREA NITROGEN 14 mg/dl (7-18); CALCIUM 9.3 mg/dl (8.5-10.1); CARBON DIOXIDE 24 mmol/L (21-32); CHLORIDE 110 mmol/L (98-107); GLUCOSE 97 mg/dl (70-99); POTASSIUM 3.8 mmol/L (3.5-5.1); SODIUM 142 mmol/L (136-145)
[2016-09-21] MEDS ORDERED: ACETAMINOPHEN 500 MG TAB PO STA (20:59)
[2016-09-21] MEDS ORDERED: ALBUT/IPRATROP 3MG/0.5MG NEB 3 ML VIAL INH STA (21:48)
--- NOTE | 2016-09-21 22:04 | Medical Consult ---
Consultation Date of Consultation: Sep 21, 2016. Attending Physician: Past Medical/Surgical History Medical Problems: (1) Nausea, vomiting, and diarrhea Status: Acute (2) Precordial chest pain Status: Acute (3) Precordial chest pain Status: Acute Family History No pertinent family history This is a 51 y/o F with a recent history of B/L burning CP and SOB. She has been to the ER 3 times within a week for the above complaints. She has not had abnormal EKGs and has not had elevated troponins. She had a stress echo completed 11/18 which was entirely within normal limits. A CT of the chest was obtained on 09/17 which showed ground glass opacities with mosaic attenuation within the lungs. This did not provide a specific diagnosis or etiology for her current complaints although it would lead us to believe that her condition is pulmonary rather than cardiac related. She has returned to the ER this evening as she does not believe she is improving and is increasingly concerned regarding her persistent symptoms. She has not had fevers, n/v, diaphoresis or lightheadedness. She has not exhibited hypoxia. Social History Smoking Status: Former Smoker Drug Use: none Marital Status: Housing Status: lives with family Allergies Coded Allergies: Nitrofurantoin (Unverified Allergy, Mild, HIVES, 09/21/16) Penicillins (Unverified Allergy, Mild, HIVES, 09/21/16) Sulfa Antibiotics (Verified Allergy, Mild, "SULFA DRUGS": HIVES, 09/21/16) Amoxicillin (Unverified Allergy, Unknown, HIVES, 09/21/16) Levofloxacin (Verified Allergy, Unknown, HIVES, 09/21/16) Review of Systems Constitutional: No chills, No fever, No sweats Eyes: No eye pain, No worsening of vision ENT: No hearing loss, No nasal symptoms, No unusual epistaxis Respiratory: + dyspnea on exertion, + shortness of breath, No cough, No sputum , No wheezing Cardiovascular: + chest pain, No PND, No claudication, No edema, No orthopnea Abdomen: No nausea, No pain, No vomiting Musculoskeletal: No joint pain, No muscle pain Genitourinary - Female: No dysuria, No urinary frequency, No urinary urgency Neurologic: No memory loss, No paralysis, No weakness Psychiatric: No depression symptoms Endocrine: No fatigue Hematologic / Lymphatic: No abnormal bleeding/bruising Integumentary: No rash Allergic / Immunologic: No environmental allergies Physical Exam Date Time Temp Pulse Resp B/P Pulse Ox O2 Delivery O2 Flow Rate FiO2 09/21/16 21:09 105 20 149/93 95 Room Air 09/21/16 20:19 83 18 127/79 99 Room Air 09/21/16 18:30 99 Room Air 09/21/16 18:21 99 Room Air 09/21/16 18:16 36.9 113 18 167/75 98 Room Air General Appearance: WD/WN, no apparent distress Head: normocephalic, atraumatic Eyes: normal inspection, PERRL, EOMI ENT: normal ENT inspection, hearing grossly normal, TMs normal, pharynx normal Neck: supple, no adenopathy, thyroid normal, no JVD Respiratory/Chest: chest non-tender, lungs clear, normal breath sounds, no respiratory distress, no accessory muscle use Cardiovascular: regular rate, rhythm, no edema, no gallop, no JVD, no murmur, normal peripheral pulses Abdomen/GI: normal bowel sounds, non tender, soft Back: normal inspection, no CVA tenderness Extremities/Musculoskelatal: normal inspection, no calf tenderness, normal capillary refill, no pedal edema, normal range of motion 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2 % Neutrophils # (Auto) 6.34 K/uL Lymphocytes # (Auto) 1.65 K/uL Monocytes # (Auto) 0.52 K/uL Eosinophils # (Auto) 0.15 K/uL Basophils # (Auto) 0.02 K/uL RDW Standard Deviation 40.4 fL RDW Coefficient of Variation 13.4 % Immature Granulocyte % (Auto) 0.2 % Immature Granulocyte # (Auto) 0.02 K/uL Sodium Level 142 mmol/L Potassium Level 3.8 mmol/L Chloride Level 110 mmol/L Carbon Dioxide Level 24 mmol/L Anion Gap 8.0 mmol/L Blood Urea Nitrogen 14 mg/dl Creatinine 1.00 mg/dl Est Creatinine Clear Calc Drug Dose 83.1 ml/min Estimated GFR () 75.0 Estimated GFR (Non- 64.7 BUN/Creatinine Ratio 14.0 Random Glucose 97 mg/dl Calcium Level 9.3 mg/dl Total Creatine Kinase 44 U/L Creatine Kinase MB < 0.5 ng/ml Creatine Kinase MB Ratio Troponin I < 0.015 ng/ml Assessment & Plan This is a 51 y/o F with a recent history of B/L burning CP and SOB. She has been to the ER 3 times within a week for the above complaints. She has not had abnormal EKGs and has not had elevated troponins. She had a stress echo completed 11/18 which was entirely within normal limits. A CT of the chest was obtained on 09/17 which showed ground glass opacities with mosaic attenuation within the lungs. This did not provide a specific diagnosis or etiology for her current complaints although it would lead us to believe that her condition is pulmonary rather than cardiac related. She has returned to the ER this evening as she does not believe she is improving and is increasingly concerned regarding her persistent symptoms. She has not had fevers, n/v, diaphoresis or lightheadedness. She has not exhibited hypoxia. Her EKG and labs/trop are once again WNL AT present I have had an extensive discussion with the pt and the ER MD. Although there may be a lung process leading to her symptoms, it is highly unlikely that the process is acute and a hospital stay would not likely be beneficial. The pt has an appt with a hogshead salvage on 09/29 which is reasonable under the circumstances. Considering the above the medical service will advise on D/C for outpt f/u as planned - we have also advised that she have a breathing treatment while in the ER to see if this has a palliative effect and she can then be D/Cd with an inhaler pending her appt. Total time for this consult including review of stress test, CT, EKG extensive lab review - discussion with pt and ER attending 36 min
--- NOTE | 2016-09-21 22:27 | EMERGENCY ROOM VISIT NOTE ---
History Report prepared by La: Shane Lao Under the Supervision of: Dr. Troy Samuel M.D. First contact with patient: 18:27 Chief Complaint: CARDIAC ASSESSMENT Stated Complaint: CHEST PAIN, SOB Nursing Triage Summary: triage note: pt reports increasing symptoms since she was seen here twice this week pt stated increasing sob, weakness, chills, buring in the chest across for days , back ache and muscle ache in the left bicep dx with virus and mildly enlarged heart History of Present Illness The patient is a 51 year old female who presents to the Emergency Room with complaints of worsening left sided chest pain beginning two days prior to arrival. She describes her pain as both burning and sharp, and she currently rates her discomfort as a 5/10 in severity. The patient associates shortness of breath and weakness with today's symptoms. She states her symptoms do not feel similar to an episode she experienced one year ago. The patient notes she had a recent change in medication for her acid reflux. She states she has been seen in the ED the past two days for the same symptoms. The patient notes she had a stress test performed yesterday that was normal, along with a CT of her chest during one of her ED visits. She states she was sent home with antibiotics yesterday. The patient denies recent alcohol use and recent syncopal episodes. 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 A total of 10 systems reviewed and were otherwise negative. Past Medical & Surgical Medical Problems: (1) No pertinent past medical history Family History No pertinent family history Social History Smoking Status: Former Smoker Drug Use: none Marital Status: Housing Status: lives with family Current/Historical Medications Scheduled B-Complex Vitamins (Vitamin B Complex), 1 TAB PO QAM Cholecalciferol (Vitamin D3), 1 CAP PO DAILY Cranberry-Vitamin C-Vitamin E (Cranberry), 1 TAB PO QPM Duloxetine Hcl (Cymbalta), 30 MG PO QPM Fish Oil (Cable-3), 1 CAP PO QAM Multivitamin (Multivitamin), 1 TAB PO DAILY Pantoprazole (Protonix), 40 MG PO QAM Ranitidine (Zantac), 150 MG PO QPM PRN Topiramate (Topamax), 50 MG PO BID Scheduled PRN Diphenhydramine Hcl (Benadryl), 25 MG PO HS PRN for Sleep Lorazepam (Ativan), 0.5-1 MG PO HS PRN for RN Allergies Coded Allergies: Nitrofurantoin (Unverified Allergy, Mild, HIVES, 09/21/16) Penicillins (Unverified Allergy, Mild, HIVES, 09/21/16) Sulfa Antibiotics (Verified Allergy, Mild, "SULFA DRUGS": HIVES, 09/21/16) Amoxicillin (Unverified Allergy, Unknown, HIVES, 09/21/16) Levofloxacin (Verified Allergy, Unknown, HIVES, 09/21/16) Physical Exam Vital Signs Date Time Temp Pulse Resp B/P Pulse Ox O2 Delivery O2 Flow Rate FiO2 09/21/16 23:06 96 18 149/96 94 Room Air 09/21/16 21:09 105 20 149/93 95 Room Air 09/21/16 20:19 83 18 127/79 99 Room Air 09/21/16 18:30 99 Room Air 09/21/16 18:21 99 Room Air 09/21/16 18:16 36.9 113 18 167/75 98 Room Air Physical Exam GENERAL: Patient is anxious appearing and in mild distress. HEENT: No acute trauma, normocephalic atraumatic, mucous membranes moist, no nasal congestion, no scleral icterus. NECK: No stridor, no adenopathy, no meningismus, trachea is midline. LUNGS: No dyspnea. Clear to auscultation and equal bilaterally. No wheeze, no rhonchi. HEART: Mildly tachycardic and regular rhythm. No murmurs, rubs, gallops appreciated. ABDOMEN: Soft, nontender, bowel sounds positive, no masses appreciated, no peritonitis. BACK: No midline tenderness, no CVA tenderness EXTREMITIES: Normal motion all extremities, no cyanosis, no edema. NEUROLOGIC: Alert and oriented, no acute motor or sensory deficits, no focal weakness, cranial nerves grossly intact. SKIN: No rash, no jaundice, no diaphoresis. Medical Decision & Procedures ER Provider Diagnostic Interpretation: X ray results are stated below per my interpretation and the radiologist's interpretation. SINGLE VIEW CHEST CLINICAL HISTORY: Atypical chest pain. FINDINGS: An AP, portable, upright chest radiograph is compared to study dated 09/20/2016 and correlated with chest CT dated 09/17/2016. The examination is degraded by portable technique, large body habitus, and patient rotation. The cardiomediastinal silhouette is unremarkable. Chronic interstitial thickening is unchanged. The lungs and pleural spaces are clear. No pneumothorax is seen. The skeletal structures are osteopenic. The bony thorax is grossly intact. IMPRESSION: No acute cardiopulmonary abnormality and no change from recent prior studies. Electronically signed by: Rubio Blake M.D. 09/21/2016 6:54 PM Laboratory Results 09/21/16 19:40 Red Blood Count 4.91, Mean Corpuscular Volume 84.1, Mean Corpuscular Hemoglobin 28.5, Mean Corpuscular Hemoglobin Concent 33.9, Mean Platelet Volume 9.7, Neutrophils (%) (Auto) 72.9, Lymphocytes (%) (Auto) 19.0, Monocytes (%) (Auto) 6.0, Eosinophils (%) (Auto) 1.7, Basophils (%) (Auto) 0.2, Neutrophils # (Auto) 6.34, Lymphocytes # (Auto) 1.65, Monocytes # (Auto) 0.52, Eosinophils # (Auto) 0.15, Basophils # (Auto) 0.02 09/21/16 19:40 Test 09/21/16 19:40 White Blood Count 8.70 K/uL (4.8-10.8) Red Blood Count 4.91 M/uL (4.2-5.4) Hemoglobin 14.0 g/dL (12.0-16.0) Hematocrit 41.3 % (37-47) Mean Corpuscular Volume 84.1 fL (80-100) Mean Corpuscular Hemoglobin 28.5 pg (25-34) Mean Corpuscular Hemoglobin Concent 33.9 g/dl (32-36) Platelet Count 274 K/uL (130-400) Mean Platelet Volume 9.7 fL (7.4-10.4) Neutrophils (%) (Auto) 72.9 % Lymphocytes (%) (Auto) 19.0 % Monocytes (%) (Auto) 6.0 % Eosinophils (%) (Auto) 1.7 % Basophils (%) (Auto) 0.2 % Neutrophils # (Auto) 6.34 K/uL (1.4-6.5) Lymphocytes # (Auto) 1.65 K/uL (1.2-3.4) Monocytes # (Auto) 0.52 K/uL (0.11-0.59) Eosinophils # (Auto) 0.15 K/uL (0-0.5) Basophils # (Auto) 0.02 K/uL (0-0.2) RDW Standard Deviation 40.4 fL (36.4-46.3) RDW Coefficient of Variation 13.4 % (11.5-14.5) Immature Granulocyte % (Auto) 0.2 % Immature Granulocyte # (Auto) 0.02 K/uL (0.00-0.02) Anion Gap 8.0 mmol/L (3-11) Est Creatinine Clear Calc Drug Dose 83.1 ml/min Estimated GFR () 75.0 Estimated GFR (Non- 64.7 BUN/Creatinine Ratio 14.0 (10-20) Calcium Level 9.3 mg/dl (8.5-10.1) Total Creatine Kinase 44 U/L (26-192) Creatine Kinase MB < 0.5 ng/ml (0.5-3.6) Creatine Kinase MB Ratio (0-3.0) Troponin I < 0.015 ng/ml (0-0.045) Laboratory results as reviewed by me. Medications Administered Medications (Trade) Dose Ordered Sig/Stan Route Start Time Stop Time Status Last Admin Dose Admin Lorazepam (Ativan Inj) 1 mg NOW STAT IV 09/21/16 18:33 09/21/16 18:34 DC 09/21/16 18:54 1 MG Al Hydroxide/Mg Hydroxide (Maalox Susp) 30 ml STK-MED ONCE .ROUTE 09/21/16 19:03 09/21/16 19:04 DC 09/21/16 19:08 30 ML Lidocaine HCl (Viscous Lidocaine 2% Soln) 20 ml STK-MED ONCE .ROUTE 09/21/16 19:03 09/21/16 19:04 DC 09/21/16 19:08 20 ML Acetaminophen (Tylenol Tab) 1,000 mg NOW STAT PO 09/21/16 20:59 09/21/16 21:00 DC 09/21/16 21:08 1,000 MG Albuterol/ Ipratropium (Duoneb) 3 ml NOW STAT INH 09/21/16 21:48 09/21/16 21:49 DC 09/21/16 21:48 3 ML Albuterol (Ventolin Hfa Inhaler) 2 puffs NOW ONCE INH 09/21/16 22:30 09/21/16 22:31 DC 09/21/16 22:30 2 PUFFS ECG Indication: chest pain Rate (beats per minute): 87 Rhythm: normal sinus Findings: no acute ischemic change, no ectopy ED Course 1829: The patient was evaluated in room A9B. A complete history and physical exam was performed. 1832: Ordered GI Cocktail 30 ml PO, Ativan Inj 1 mg IV. 2058: Ordered Tylenol Tab 1,000 mg PO. 2122: Reevaluated the patient at this time, and she is less anxious but still feels the pain across her chest. 2147: Ordered Dupneb 3 ml INH. 2226: I spoke to VIN Clayton (Hospitalist) about the patient's case, and he recommended giving the patient a Duoneb and to send her home. 2229: Ordered Albuterol 2 puffs INH. 2231: Reevaluated the patient. Discussed results and discharge instructions: She verbalized understanding and agreement. The patient is ready for discharge. 2247: Discussed what the hospitalist said about having him go home as an outpatient with an inhaler. The patient understands and is ready to go home. Medical Decision Differential: Cardiac Ischemia (STEMI, NSTEMI, Unstable Angina, etc), Aortic Dissection, Arrhythmia, Pulmonary Embolism, Pneumonia, Pneumothorax, MSK, Infectious, Pericarditis/Myocarditis, Esophageal Rupture, Gastrointestinal, amongst other pathologies entertained. 51 yr old female arrives for 3rd day in a row for persistent mid sternal bandlike pain. She has had multiple negative trops and EKGs with normal stress echo yesterday and CT PE study that showed some ground glass opacity in lungs without other findings. She is stable, and actually much improved with ativan. She notes this is worse at home and SOB is worse at home. She is concerned that this is her heart. She has no cough no fever no wbc elevation and I feel infection is unlikely. She is not having ACS. I discussed case with Dr Carr who evaluated patient and advised discharge with inhaler after duoneb treatment. She is not septic. Discussed that we are always open and if worsening symptoms or other concerns we are here to evaluation and help her. Consults Time Called: 2225 Consulting Physician: VIN Clayton (Hospitalist) Returned Call: [phone] I spoke to VIN Clayton (Hospitalist) about the patient's case, and he recommended giving the patient a Duoneb and to send her home. Impression Primary Impression: Mid sternal chest pain Scribe Attestation The scribe's documentation has been prepared under my direction and personally reviewed by me in its entirety. I confirm that the note above accurately reflects all work, treatment, procedures, and medical decision making performed by me. Departure Information Dispostion Home / Self-Care Referrals Matteo Knox M.D. (PCP) Forms IMPORTANT VISIT INFORMATION Patient Instructions ED Chest Pain Atypical Unkn Cause, My [facility]
[2016-09-21] MEDS ORDERED: ALBUTEROL HFA 8 GM INHALER INH ONE (22:30)
[2016-09-21 23:06] VITALS: BP 149/96; PULSE 96; O2SAT 94
[2016-10-13] MEDS ORDERED: VNTHFA/IN INH (11:07)
[2016-10-13] MEDS ORDERED: ACET-1311 PO (11:08)
== END 2016-09-21 23:07 | disposition home or self-care (01) ==
LOC: C.EDB 18:15 → C.EDA 23:07
DX: R07.2 Precordial pain (principal); R06.02 Shortness of breath; K21.9 Gastro-esophageal reflux disease without esophagitis; Z79.899 Other long term (current) drug therapy; Z87.891 Personal history of nicotine dependence

== ENCOUNTER 2016-11-03 07:55 | Inpatient (IN) | payer BC ==
[2016-10-13 11:09] VITALS: BMI 37.0
--- NOTE | 2016-10-13 11:56 | PAT Medication Instructions ---
Service Date Oct 13, 2016. Current Home Medication List Acetaminophen (Tylenol), 325 MG PO PRN Albuterol Hfa (Ventolin Hfa), 1-2 PUFFS INH Q6H PRN for RN Cholecalciferol (Vitamin D3), 1 CAP PO QAM Diphenhydramine Hcl (Benadryl), 25 MG PO HS PRN for Sleep Duloxetine Hcl (Cymbalta), 30 MG PO QPM Lorazepam (Ativan), 0.5-1 MG PO HS PRN for RN Pantoprazole (Protonix), 40 MG PO QAM Ranitidine (Zantac), 150 MG PO QPM PRN Topiramate (Topamax), 50 MG PO BID Medication Instructions For Your Scheduled Surgery - Hold the following medications the morning of surgery: Cholecalciferol (Vitamin D3), 1 CAP PO QAM - Take the following medications the morning of surgery with a sip of water: Topiramate (Topamax), 50 MG PO BID Pantoprazole (Protonix), 40 MG PO QAM Acetaminophen (Tylenol), 325 MG PO PRN (if needed) Albuterol Hfa (Ventolin Hfa), 1-2 PUFFS INH Q6H PRN for RN (if needed- bring with you to hospital on day of surgery) - Take the following medications as scheduled the night before surgery: Topiramate (Topamax), 50 MG PO BID Ranitidine (Zantac), 150 MG PO QPM PRN Lorazepam (Ativan), 0.5-1 MG PO HS PRN for RN Duloxetine Hcl (Cymbalta), 30 MG PO QPM Diphenhydramine Hcl (Benadryl), 25 MG PO HS PRN for Sleep Acetaminophen (Tylenol), 325 MG PO PRN Albuterol Hfa (Ventolin Hfa), 1-2 PUFFS INH Q6H PRN for RN If you have any questions please call us at [phone] or [phone] ( Jessica) or [phone]
[~2016-11-03] VITALS: Ht 170.2 cm; Wt 107.7 kg
[2016-11-03] VITALS (9 sets, daily range): BP systolic 109–142; BP diastolic 69–91; PULSE 74–94; TEMP 35.7–36.7; O2SAT 91–96; Ht 170.2 cm; Wt 107.7 kg
[~2016-11-03 07:55] MED LIST changes: +ACET-1311 PO; -B-COTAB18 PO; -CRAN1CAP15 PO; +LACTATED RINGER'S 1000ML 1,000 ML IV SCH; -MULT-506 PO; -OMEG10007 PO; +VNTHFA/IN INH
[2016-11-03] MEDS ORDERED: CLINDAMYCIN IV 900 MG in DEXTROSE 5% ADD-VANTAGE 100ML 100 ML IV SCH (08:30)
[2016-11-03] MEDS ORDERED: ONDANSETRON INJ 2 MG/ML 2 ML VIAL IV PRN ×2 (09:30→12:45)
[2016-11-03] MEDS ORDERED: EpHEDrine SULFATE INJ 50 MG/ML AMP IV PRN (09:30)
[2016-11-03] MEDS ORDERED: ATROPINE SULFATE 0.1 MG/ML 5ML SYR IV PRN (09:30)
[2016-11-03] MEDS ORDERED: PHENYLEPHRINE 100MCG/ML 5ML SYR IV PRN (09:30)
--- NOTE | 2016-11-03 09:30 | History & Physical Bridge Note ---
H&P Re-Evaluation Bridge Note: I have examined the patient, reviewed the History & Physical and in the interval since the performance of the History & Physical I have noted the following changes of clinical significance: No changes noted
[2016-11-03] MEDS ORDERED: ROCURONIUM BROMIDE 10 MG/ML 5 ML VIAL ONE (09:49)
[2016-11-03] MEDS ORDERED: MIDAZOLAM HCL 1 MG/ML 2ML VIAL ONE (09:49)
[2016-11-03] MEDS ORDERED: FENTANYL CITRATE INJ 50 MCG/1 ML 2 ML VIAL ONE ×3 (09:49→12:13)
[2016-11-03] MEDS ORDERED: PROPOFOL IV EMULSION 10 MG/ML 20 ML VIAL IV ONE (09:49)
[2016-11-03] MEDS ORDERED: SUCCINYLCHOLINE CHLORIDE 20 MG/ML 10 ML VIAL IV ONE (09:49)
[2016-11-03] MEDS ORDERED: LIDOCAINE HCL 2% 2 ML VIAL (20MG/ML) ONE (09:49)
[2016-11-03] MEDS ORDERED: LIDOCAINE/EPINEPHRINE 1% 20 ML VIAL ONE (09:56)
[2016-11-03] MEDS ORDERED: THROMBIN 5000 UNITS KIT ONE (09:56)
[2016-11-03] MEDS ORDERED: BACITRACIN OINT 15 GM TUBE ONE (09:56)
[2016-11-03] MEDS ORDERED: ONDANSETRON INJ 2 MG/ML 2 ML VIAL ONE ×2 (12:12)
[2016-11-03] MEDS ORDERED: DEXAMETHASONE SOD INJ 4 MG/ML VIAL ONE (12:12)
[2016-11-03] MEDS: LACTATED RINGER'S 1000ML 1,000 ML IV SCH ×2 (12:38→22:14)
--- NOTE | 2016-11-03 12:38 | [facility] Operative Report ---
Operative Report Operative Date Nov 03, 2016. Pre-Operative Diagnosis Substernal thyroid goiter Post-Operative Diagnosis SAME Procedure(s) Performed TOTAL THYROIDECTOMY INCLUDING SUBSTERNAL PORTION ON LEFT Surgeon Dr. Jeferson Lopez Insulation Mechanic Surgeon(s) Meme Aguiar PA-C Estimated Blood Loss 100ML Findings VERY LARGE LEFT SUBSTERNAL GOITER CAUSING TRACHEAL DEVIATION TO THE LEFT Specimens A: Right thyroid lobe double stitch portillo superior pole and single stitch portillo isthmus B: Left thyroid lobe double stitch portillo superior pole and single stitch portillo isthmus I attest to the content of the Intraoperative Record and any orders documented therein. Any exceptions are noted below.
[2016-11-03] MEDS ORDERED: LORAZEPAM 0.5 MG TAB PO PRN (12:45)
[2016-11-03] MEDS ORDERED: HYDROCODONE/ACETAMOPHEN 5/325MG TAB PO PRN (12:45)
[2016-11-03] MEDS ORDERED: ALBUTEROL HFA 8 GM INHALER INH PRN (12:45)
--- NOTE | 2016-11-03 13:21 | OPERATIVE REPORT ---
DATE OF OPERATION: 11/03/2016 PREOPERATIVE DIAGNOSIS: Left substernal multinodular goiter. POSTOPERATIVE DIAGNOSIS: Same. PROCEDURE: Total thyroidectomy with excision of substernal goiter on the left. SURGEON: Dr. Lopez. TANKER DRIVER: Meme Aguiar PA-C. ESTIMATED BLOOD LOSS: 100 mL. FINDINGS: Very large left substernal goiter and enlarged right thyroid lobe as well. SPECIMENS: Right and left thyroid lobe sent separately for permanent pathological assessment. DRAINS: None. COMPLICATIONS: None. INDICATIONS FOR THE PROCEDURE: The patient is a 51-year-old female who was incidentally found to have a large left substernal goiter with tracheal deviation to the right on a CT angiogram to work up shortness of breath. The patient does have orthopnea which is likely related to her enlarged thyroid gland with left substernal component causing tracheal shift to the right hand side and some compression. She presents for the above-mentioned procedure on an inpatient elective basis. DETAILS OF PROCEDURE: After informed consent had been obtained from the patient, the patient was wheeled to the operating room and placed on the operating table in the supine position. Monitors were placed. After induction of general endotracheal anesthesia with a size 7 nerve integrity monitor endotracheal tube the patient's head and neck were gently extended and a marking pen was used to outline the planned 8 cm incision in a natural skin crease 2 fingerbreadths above the level of clavicles. A total of 3 mL of 1% lidocaine with 1:100,000 epinephrine was used to inject the skin and subcutaneous tissues overlying the planned incision site. The skin of the neck and chest were then prepped and draped in the usual sterile fashion. A #15 scalpel was used to make the incision through the skin, subcutaneous tissue, and platysma. Subplatysmal flaps were raised superiorly to the level of the thyroid notch and inferiorly to the level of the clavicles. The median raphe of the strap muscles was divided using Bovie electrocautery. Due to the size of the thyroid gland the strap muscles were divided transversely in the mid portion of them using a Harmonic scalpel. Dissection was first carried on the right hand side. The middle thyroid vein as well as superior and inferior thyroid vascular pedicles were divided using a Harmonic scalpel adjacent to the thyroid capsule. Dissection was carried lateral to medial with care to identify and preserve the recurrent laryngeal nerve as well as superior and inferior parathyroid candidates. The thyroid gland was at the isthmus using Harmonic scalpel. Orienting sutures were placed on the right thyroid lobectomy specimen which was sent off for permanent pathological assessment. The left side was then addressed in a similar fashion. On this side, there was a large substernal component which was dissected using blunt dissection as well as Harmonic scalpel. This went down significantly into the mediastinum and caused tracheal compression and tracheal deviation to the right hand side. After the left side was removed, the wound was copiously irrigated and suctioned. Bipolar cautery was used to achieve adequate hemostasis. Small pieces of Surgicel followed by topical spray thrombin were placed into the bilateral tracheoesophageal grooves for added hemostatic effect. The divided strap muscles were then reapproximated using several simple interrupted 3-0 Vicryl sutures. The resutured strap muscles were then sutured in the midline using a simple running interlocking 3-0 Vicryl suture. The platysma was closed with deep 4-0 Monocryl sutures. The skin was then closed with a simple running subcuticular 5-0 Monocryl suture. The incision was cleansed and dried. Dermabond was applied to the incision. This marked the end of the case. The patient tolerated the procedure well. There were no apparent complications. The patient was extubated and transferred to recovery room in stable condition. I attest to the content of the Intraoperative Record and any orders documented therein. Any exceptio ns are noted below.
[2016-11-03] MEDS ORDERED: HYDROmorphone INJ 1 MG/ML SYR ONE (13:27)
[2016-11-03] MEDS: HYDROmorphone INJ 2 MG/ML SYR/VIAL IV PRN ×2 (13:32→13:39)
--- NOTE | 2016-11-03 14:33 | Anesthesiology Progress Note ---
Anesthesia Post Op Note Date & Time Nov 03, 2016 at 14:34 Vital Signs Pain Intensity: 3 Vital Signs Past 12 Hours Date Time Temp Pulse Resp B/P Pulse Ox O2 Delivery O2 Flow Rate FiO2 11/03/16 13:55 36.4 75 16 135/75 92 Room Air 11/03/16 13:45 88 14 119/85 92 Room Air 11/03/16 13:35 98 14 128/73 96 Diffusion Mask 10 11/03/16 13:25 93 14 133/77 96 Diffusion Mask 10 11/03/16 13:16 99 14 115/72 97 Diffusion Mask 10 11/03/16 13:07 36.1 104 14 121/68 96 Diffusion Mask 10 11/03/16 08:17 36.4 75 18 122/91 94 Room Air Notes Mental Status: alert / awake / arousable, participated in evaluation Pt Amnestic to Procedure: Yes Nausea / Vomiting: adequately controlled Pain: adequately controlled Airway Patency, RR, SpO2: stable & adequate BP & HR: stable & adequate Hydration State: stable & adequate Anesthetic Complications: no major complications apparent
[2016-11-03] MEDS ORDERED: MoRPHine SULFATE 2 MG/ML CARP IV PRN (17:45)
[2016-11-03] MEDS: ACETAMINOPHEN 325 MG TAB PO PRN (18:02)
[2016-11-03 18:33] LABS: CALCIUM 8.4 mg/dl (8.5-10.1); MAGNESIUM 2.1 mg/dl (1.8-2.4); PHOSPHORUS 3.1 mg/dl (2.5-4.9)
[2016-11-03] MEDS: TOPIRAMATE 50 MG TAB PO SCH (20:41)
[2016-11-03] MEDS: RANITIDINE HCL 150 MG TAB PO SCH (20:41)
[2016-11-03] MEDS ORDERED: DULOXETINE (CYMBALTA) 30 MG CAP PO SCH (21:00)
[2016-11-04 01:21] LABS: CALCIUM 7.8 mg/dl (8.5-10.1); PHOSPHORUS 3.2 mg/dl (2.5-4.9)
[2016-11-04] MEDS ORDERED: CALCIUM CHLORIDE 10% 10 ML SYR IV STA (01:31)
[2016-11-04] MEDS ORDERED: CALCIUM CHLORIDE 10% 2,000 MG in SODIUM CHLORIDE 0.9% 50ML 50 ML IV SCH (02:00)
[2016-11-04] MEDS: CALCIUM 600MG + VIT D 400 IU TAB PO SCH ×3 (02:03→12:10)
[2016-11-04] MEDS: CALCIUM CHLORIDE 10% 1,000 MG in SODIUM CHLORIDE 0.9% 50ML 50 ML IV SCH ×2 (02:27→03:10)
[2016-11-04 04:07] VITALS: BP 110/73; PULSE 63; TEMP 36.4; O2SAT 93
[2016-11-04] MEDS ORDERED: LEVOTHYROXINE 175 MCG TAB PO SCH (06:00)
[2016-11-04 06:43] LABS: MAGNESIUM 2.1 mg/dl (1.8-2.4)
[2016-11-04 07:33] VITALS: BP 123/76; PULSE 73; TEMP 36.1; O2SAT 93
[2016-11-04 07:41] LABS: PHOSPHORUS 4.6 mg/dl (2.5-4.9)
--- NOTE | 2016-11-04 07:42 | ENT PROGRESS NOTE ---
DATE: 11/04/2016 The patient is postoperative day 1 status post total thyroidectomy including large left substernal goiter. The patient has done postoperatively, but had mildly low calcium requiring IV calcium and oral calcium supplementation. The patient had some mild perioral numbness which has resolved with the administration of 2 gm of IV calcium as well as starting calcium and vitamin D supplementation. The patient has no complaints this morning. She is afebrile and her vital signs are stable. On examination she has a normal voice. Her thyroidectomy incision is healing well with perhaps a mild fluid collection, but no hematoma. Laboratory examination this morning shows a normal calcium of 10.0. She does have mild low albumin at 3.2 which might spuriously lower the calcium rate. IMPRESSION/RECOMMENDATIONS: 51-year-old female postoperative day 1 status post total thyroidectomy. She did require IV and oral calcium supplementation. I would like to check her labs once more at noon and determine whether or not she is suitable for discharge at that time. Most likely she will go home on a calcium and vitamin D taper over the next 4 weeks.
[2016-11-04] MEDS: ACETAMINOPHEN 325 MG TAB PO PRN (07:48)
[2016-11-04] MEDS: RANITIDINE HCL 150 MG TAB PO SCH (09:00)
[2016-11-04] MEDS ORDERED: PANTOprazole SOD 40 MG TAB PO SCH (09:00)
[2016-11-04] MEDS ORDERED: CHOLECALCIFEROL 1000 INTER.UNIT TAB PO SCH (09:00)
[2016-11-04] MEDS: LACTATED RINGER'S 1000ML 1,000 ML IV SCH (09:10)
[2016-11-04] MEDS: TOPIRAMATE 50 MG TAB PO SCH (09:11)
--- NOTE | 2016-11-04 09:57 | Anesthesiology Progress Note ---
Anesthesia Post Op Note Date & Time Nov 04, 2016 at 09:56 Vital Signs Pain Intensity: 3.0 Vital Signs Past 12 Hours Date Time Temp Pulse Resp B/P Pulse Ox O2 Delivery O2 Flow Rate FiO2 11/04/16 07:33 36.1 73 16 123/76 93 Room Air 11/04/16 07:33 Room Air 11/04/16 07:15 Room Air 11/04/16 04:07 36.4 63 17 110/73 93 Room Air 11/03/16 23:52 Room Air 11/03/16 23:14 36.7 77 16 109/69 91 Room Air Notes Mental Status: alert / awake / arousable Pt Amnestic to Procedure: Yes Nausea / Vomiting: adequately controlled Pain: adequately controlled Airway Patency, RR, SpO2: stable & adequate BP & HR: stable & adequate Hydration State: stable & adequate
[2016-11-04 12:07] VITALS: BP 113/74; PULSE 80; TEMP 36.3; O2SAT 95
[2016-11-04 13:06] LABS: CALCIUM 9.8 mg/dl (8.5-10.1); PHOSPHORUS 3.3 mg/dl (2.5-4.9)
--- NOTE | 2016-11-04 13:10 | Discharge Instructions ---
Discharge Instructions Date of Service Nov 04, 2016. Admission Reason for Admission: Substernal Thyroid Goiter, Dyspnea On Exertion Discharge Discharge Diagnosis / Problem: SAME Discharge Goals Goal(s): Therapeutic intervention Activity Recommendations Activity Limitations: as noted below 1. LIGHT ACTIVITY FOR 2WEEKS 2. KEEP INCISION DRY FOR 1WEEK 3. KEEP ICE ON NECK AREA MUCH TOLERATED FOR 1WEEK 4. NO DRIVING WHILE ON NORCO . Current Hospital Diet Patient's current hospital diet: Full Liquid Diet Discharge Diet Recommended Diet: Regular Diet Procedures Procedures Performed: Total Thyroidectomy Pending Studies Studies pending at discharge: no Medical Emergencies . Who to Call and When: Medical Emergencies: If at any time you feel your situation is an emergency, please call 911 immediately. . Non-Emergent Contact Non-Emergency issues call your: Surgeon . . "Provider Documentation" section prepared by Jeferson Lopez. VTE Core Measure Inpt VTE Proph given/why not?: SCD's
[2016-11-04 14:22] VITALS: BP 113/74; PULSE 80; TEMP 36.3; O2SAT 95
--- NOTE | 2016-11-04 15:13 | DISCHARGE SUMMARY ---
HOSPITAL COURSE: The patient is a 51-year-old female who has a history of orthopnea and was found on a CT angiogram to have a large left substernal goiter with tracheal deviation and compression to the right hand side. She underwent total thyroidectomy on 11/03/2016 and intraoperatively had a large left substernal goiter with tracheal deviation and compression to the right hand side. Postoperatively, she did well with a normal voice, but did have some mildly low calcium levels requiring supplementation with IV calcium and oral calcium and vitamin D. This responded nicely to elevation of her calcium within the normal range and decrease in her phosphorus to a more normal range as well. She was discharged to home in satisfactory condition on postoperative day #1 on new medications of levothyroxine 175 mcg daily and [place] 5 mg/325 mg 1-2 tablets p.o. q. 4 hours p.r.n. She was also advised to get iaic-ink-[id number] Os-Estuardo D and take 2 pills 4 times daily for 1 week, followed by 2 pills 3 times daily for one week, followed by 2 pills twice daily for 1 week, followed 2 pills once daily for 1 week. I will check her thyroid function test as well as her calcium levels on an outpatient basis. She should contact my office if she develops any perioral or digital numbness or paresthesias and/or muscle spasm/cramps. She was discharged to home on postoperative day #1 in satisfactory condition. She should keep her incision dry for 1 week. She should keep ice on her neck as much as tolerated over the next week. She has a follow-up appointment next Tuesday in my office.
== END 2016-11-04 15:10 | disposition home or self-care (01) | DRG 627 ==
LOC: ENRESERVTM → ENRESERVDT → C.ACU 07:55 → C.MSN 13:32
PROC: 0GTK0ZZ Resection of Thyroid Gland, Open Approach (ICD-10-PCS; principal; 2016-11-03 09:30)
DX: E04.2 Nontoxic multinodular goiter (principal); R06.09 Other forms of dyspnea; R13.10 Dysphagia, unspecified; K21.9 Gastro-esophageal reflux disease without esophagitis; F41.9 Anxiety disorder, unspecified; F32.9 Major depressive disorder, single episode, unspecified; G43.909 Migraine, unspecified, not intractable, without status migrainosus; M79.7 Fibromyalgia; Z87.891 Personal history of nicotine dependence; Z79.899 Other long term (current) drug therapy

== ENCOUNTER → 2016-12-24 | Outpatient (CLI) | payer BC ==
[~2016-12-24] MED LIST changes: -BND25 PO; +DIPH25CA5 PO; -LACTATED RINGER'S 1000ML 1,000 ML IV SCH
[2016-12-24 16:16] LABS: CALCIUM 9.4 mg/dl (8.5-10.1)
[2016-12-24 16:31] LABS: THYROID STIMULATING HORMONE 0.016 uIu/ml (0.300-4.500)
== END ==
LOC: C.LABBFT 11:27
PROVIDERS: ATTEND Internal Medicine Endocrinology, Diabetes & Metabolism
DX: E89.0 Postprocedural hypothyroidism (principal)

== ENCOUNTER → 2017-01-25 | Outpatient (CLI) | payer BC ==
[2017-01-25 13:25] LABS: THYROID STIMULATING HORMONE 0.063 uIu/ml (0.300-4.500)
== END | disposition home or self-care (01) ==
LOC: C.LAB 10:55
PROVIDERS: ATTEND Internal Medicine Endocrinology, Diabetes & Metabolism
DX: E89.0 Postprocedural hypothyroidism (principal)

== ENCOUNTER → 2017-02-03 | Outpatient (CLI) | payer BC ==
--- NOTE | 2017-02-03 13:55 | DIAGNOSTIC IMAGING REPORT ---
CT OF THE CHEST WITHOUT IV CONTRAST CLINICAL HISTORY: ABNORMAL CT SCAN FOLLOW-UP EXAMINATION COMPARISON STUDY: 09/17/2016 CT DOSE: 426.46 mGy.cm TECHNIQUE: CT of the thorax was performed from the thoracic inlet to the lung bases. Images are reviewed in the axial, sagittal, and coronal planes. IV contrast was not administered for this examination. FINDINGS: Thyroid: The patient appears be status post an interval thyroidectomy. Thoracic aorta: The ascending thoracic aorta measures 38 mm. Heart: The heart is normal in size and configuration, without pericardial effusion. Lungs and pleural spaces: No pleural effusions are visualized. There is no focal pulmonary consolidation. There is been interval resolution of the previous identified groundglass opacities. Mediastinum: There is no mediastinal lymphadenopathy. Jaz: Clear. Axilla: Clear. Upper abdomen: Partially visualized upper abdominal viscera is within normal limits. Skeletal structures: There are no lytic or blastic osseous lesions. IMPRESSION: 1. No acute intrathoracic findings 2. No evidence of pathologic adenopathy 3. Interval resolution of the previous described groundglass opacities with mosaic attenuation Electronically signed by: Denis Price M.D. 02/03/2017 1:54 PM Dictated Date/Time: 02/03/2017 1:50 PM
== END | disposition home or self-care (01) ==
LOC: C.CTS 13:32
PROVIDERS: ATTEND Internal Medicine Critical Care Medicine
DX: R93.8 Abnormal findings on diagnostic imaging of other specified body structures (principal)

== ENCOUNTER → 2017-02-08 | Outpatient (CLI) | payer BC ==
[2017-02-08 12:35] LABS: BLOOD UREA NITROGEN 18 mg/dl (7-18); BUN/CREATININE RATIO 16.8 (10-20); CALCIUM 8.8 mg/dl (8.5-10.1); CARBON DIOXIDE 25 mmol/L (21-32); CHLORIDE 110 mmol/L (98-107); GLUCOSE 86 mg/dl (70-99); POTASSIUM 3.9 mmol/L (3.5-5.1); SODIUM 143 mmol/L (136-145)
[2017-02-08 13:20] LABS: ESTIMATED AVERAGE GLUCOSE 117 mg/dl; HA1C FLAG Normal (Normal)
== END | disposition home or self-care (01) ==
LOC: C.LABBFT 08:59
PROVIDERS: ATTEND Family Medicine
DX: R53.83 Other fatigue (principal); R51 Headache

== ENCOUNTER → 2017-02-23 | Outpatient (CLI) | payer BC ==
[~2017-02-23] MED LIST changes: +BND25 PO; -DIPH25CA5 PO
--- NOTE | 2017-02-23 12:34 | MAMMOGRAPHY REPORT ---
BILATERAL DIGITAL SCREENING MAMMOGRAM TOMOSYNTHESIS WITH CAD: 02/23/2017 CLINICAL HISTORY: Routine screening. Patient has no complaints. TECHNIQUE: Breast tomosynthesis in addition to standard 2D mammography was performed. Current study was also evaluated with a Computer Aided Detection (CAD) system. COMPARISON: Comparison is made to exams dated: 07/02/2015 ultrasound, 07/02/2015 mammogram, 4 mammogram, 12/28/2012 mammogram, 12/21/2011 mammogram, and 12/18/2010 mammogram - [facility]. BREAST COMPOSITION: The tissue of both breasts is heterogeneously dense, which may obscure small mas ses. FINDINGS: No suspicious masses, calcifications, or areas of architectural distortion are noted in ei ther breast. There has been no significant interval change compared to prior exams. Fluctuating smal l round/oval circumscribed benign-appearing masses are again noted bilaterally, which are considered benign given the multiplicity and bilaterality and likely represent cysts, with multiple cysts seen o n prior ultrasound exams. IMPRESSION: ACR BI-RADS CATEGORY 2: BENIGN There is no mammographic evidence of malignancy. A 1 year screening mammogram is recommended. The pa tient will receive written notification of the results. Approximately 10% of breast cancers are not detected with mammography. A negative mammographic report should not delay biopsy if a clinically suggestive mass is present. Magaly Resendiz M.D. 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
== END | disposition home or self-care (01) ==
LOC: C.MAMM 11:40
PROVIDERS: ATTEND Obstetrics & Gynecology
DX: Z12.31 Encounter for screening mammogram for malignant neoplasm of breast (principal)

== ENCOUNTER → 2017-02-23 | Outpatient (CLI) | payer BC ==
[2017-02-23 14:02] LABS: THYROID STIMULATING HORMONE 0.048 uIu/ml (0.300-4.500)
== END | disposition home or self-care (01) ==
LOC: C.LAB 12:16
PROVIDERS: ATTEND Internal Medicine Endocrinology, Diabetes & Metabolism
DX: E89.0 Postprocedural hypothyroidism (principal)

== ENCOUNTER → 2017-03-10 | Outpatient (CLI) | payer BC ==
--- NOTE | 2017-03-14 19:27 | PULMONARY FUNCTION TEST ---
Interpretation based off ATS criteria: SPIROMETRY: Within normal limits. BRONCHODILATOR: No significant response. LUNG VOLUMES: Reduced residual volume at 42%. DIFFUSION CAPACITY: Mildly reduced at 72% but corrects based off alveolar volume. INTERPRETATION: Mild restrictive ventilatory disease.
== END | disposition home or self-care (01) ==
LOC: C.RC 09:22
PROVIDERS: ATTEND Internal Medicine Critical Care Medicine
DX: R93.8 Abnormal findings on diagnostic imaging of other specified body structures (principal)

== ENCOUNTER 2017-03-28 15:38 | Emergency (ER) | payer BC ==
[~2017-03-28] VITALS: Ht 170.2 cm; Wt 101.5 kg
[2017-03-28 15:47] VITALS: BP 145/85; PULSE 68; TEMP 36.4; O2SAT 100; Ht 170.2 cm; Wt 101.5 kg
== END 2017-03-28 16:45 | disposition left against medical advice (07) ==
LOC: C.EDB 15:40
DX: R79.9 Abnormal finding of blood chemistry, unspecified (principal)

== ENCOUNTER → 2017-03-28 | Outpatient (CLI) | payer BC ==
[2017-03-28 11:33] LABS: THYROID STIMULATING HORMONE 0.04 uIu/ml (0.300-4.500)
== END | disposition home or self-care (01) ==
LOC: C.LAB 09:35
PROVIDERS: ATTEND Internal Medicine Endocrinology, Diabetes & Metabolism
DX: E04.9 Nontoxic goiter, unspecified (principal)

== ENCOUNTER → 2017-04-20 | Outpatient (CLI) | payer BC ==
[2017-04-20 15:41] LABS: THYROID STIMULATING HORMONE 0.372 uIu/ml (0.300-4.500)
== END | disposition home or self-care (01) ==
LOC: C.LAB 13:27
PROVIDERS: ATTEND Internal Medicine Endocrinology, Diabetes & Metabolism
DX: E89.0 Postprocedural hypothyroidism (principal)

== ENCOUNTER → 2017-05-23 | Outpatient (CLI) | payer BC ==
[2017-05-23 14:18] LABS: THYROID STIMULATING HORMONE 0.772 uIu/ml (0.300-4.500)
== END | disposition home or self-care (01) ==
LOC: C.LABBC 10:23
PROVIDERS: ATTEND Internal Medicine Endocrinology, Diabetes & Metabolism
DX: R73.03 Prediabetes (principal); R53.83 Other fatigue

== ENCOUNTER → 2017-06-14 | Outpatient (CLI) | payer BC ==
[~2017-06-14] MED LIST changes: -BND25 PO; +DIPH25CA5 PO
--- NOTE | 2017-06-14 13:07 | DIAGNOSTIC IMAGING REPORT ---
ULTRASOUND VENOUS DOPPLER ULTRASOUND OF THE RIGHT LOWER EXTREMITY CLINICAL HISTORY: Right leg pain and swelling COMPARISON STUDY: No previous studies for comparison. FINDINGS: Real-time and color flow Doppler imaging were performed. Flow was seen within the femoral, popliteal and calf veins with no intraluminal thrombus demonstrated. The saphenous vein is patent. IMPRESSION: No evidence of right lower extremity DVT Electronically signed by: Denis Price M.D. 06/14/2017 1:05 PM Dictated Date/Time: 06/14/2017 1:04 PM
== END | disposition home or self-care (01) ==
LOC: C.ULTRBC 12:24
PROVIDERS: ATTEND Family Medicine
DX: M79.661 Pain in right lower leg (principal)

== ENCOUNTER → 2017-07-13 | Outpatient (CLI) | payer BC ==
[2017-07-13 18:28] LABS: THYROID STIMULATING HORMONE 0.736 uIu/ml (0.300-4.500)
== END | disposition home or self-care (01) ==
LOC: C.LABPVFM 15:45
PROVIDERS: ATTEND Family Medicine
DX: E89.0 Postprocedural hypothyroidism (principal)

== ENCOUNTER → 2017-08-10 | Outpatient (CLI) | payer BC ==
[~2017-08-10] MED LIST changes: +B-CO1CAP3 PO; +CRAN500C2 PO; +LEVO88TA3 PO; +RANI150T85 PO; -ZNTT/150 PO
== END | disposition home or self-care (01) ==
LOC: C.PAPS 11:58
PROVIDERS: ATTEND Obstetrics & Gynecology
DX: Z01.419 Encounter for gynecological examination (general) (routine) without abnormal findings (principal)

== ENCOUNTER 2017-10-11 10:59 | Emergency (ER) | payer BC, OTHER ==
[~2017-10-11] VITALS: Ht 170.2 cm; Wt 96.8 kg
[~2017-10-11 10:59] MED LIST changes: -B-CO1CAP3 PO; -CRAN500C2 PO; -LEVO88TA3 PO
[2017-10-11 11:00] VITALS: TEMP 36.4; Ht 170.2 cm; Wt 96.8 kg
[2017-10-11 11:15] VITALS: O2SAT 97
[2017-10-11] MEDS ORDERED: SODIUM CHLORIDE 0.9% 1000ML 1,000 ML IV STA (11:49)
--- NOTE | 2017-10-11 12:10 | DIAGNOSTIC IMAGING REPORT ---
CHEST ONE VIEW PORTABLE HISTORY: Atypical Chest Pain COMPARISON: Chest 09/21/2016. FINDINGS: The lungs are clear. Cardiac silhouette is normal in size. No pleural effusions. No pneumothorax. IMPRESSION: No acute process. Electronically signed by: Sean Domingo M.D. 10/11/2017 12:09 PM Dictated Date/Time: 10/11/2017 12:07 PM
[2017-10-11 12:12] LABS: BASO % 1.3 %; BASO ABS # 0.06 K/uL (0-0.2); EOS % 5.3 %; EOS ABS # 0.24 K/uL (0-0.5); HEMATOCRIT 43.1 % (37-47); HEMOGLOBIN 14.7 g/dL (12.0-16.0); IG# 0.01 K/uL (0.00-0.02); LYMPH % 32.4 %; LYMPH ABS # 1.48 K/uL (1.2-3.4); MEAN CELL VOLUME 88.1 fL (80-100); MEAN CORPUSCULAR HEMOGLOBIN 30.1 pg (25-34); MEAN CORPUSCULAR HGB CONC 34.1 g/dl (32-36); MEAN PLATELET VOLUME 9.5 fL (7.4-10.4); MONO ABS # 0.41 K/uL (0.11-0.59); NEUT % 51.8 %; NEUT ABS # 2.37 K/uL (1.4-6.5); PLATELET COUNT 253 K/uL (130-400); RED CELL DISTRIBUTION WIDTH CV 13.5 % (11.5-14.5); RED CELL DISTRIBUTION WIDTH SD 43.7 fL (36.4-46.3); WHITE BLOOD COUNT 4.57 K/uL (4.8-10.8)
[2017-10-11] MEDS ORDERED: LEVO88TA3 PO (12:14)
[2017-10-11] MEDS ORDERED: CRAN500C2 PO (12:14)
[2017-10-11] MEDS ORDERED: B-CO1CAP3 PO (12:14)
[2017-10-11 12:21] LABS: BLOOD UREA NITROGEN 21 mg/dl (7-18); CALCIUM 9.7 mg/dl (8.5-10.1); CARBON DIOXIDE 26 mmol/L (21-32); CREATININE 1.18 mg/dl (0.60-1.20); GLUCOSE 88 mg/dl (70-99); POTASSIUM 3.6 mmol/L (3.5-5.1); SODIUM 141 mmol/L (136-145)
[2017-10-11 12:25] LABS: CKMB < 0.5 ng/ml (0.5-3.6)
[2017-10-11] MEDS ORDERED: ONDANSETRON INJ 2 MG/ML 2 ML VIAL IV STA (12:38)
[2017-10-11] MEDS ORDERED: OPTIRAY 320 IV PRN (12:45)
--- NOTE | 2017-10-11 13:26 | DIAGNOSTIC IMAGING REPORT ---
ABD/PELVIS IV CONTRAST ONLY CT DOSE: HISTORY: Pain. Nausea. abd pain rlq TECHNIQUE: Multiaxial CT images of the abdomen and pelvis were performed following the use of intravenous contrast. A dose lowering technique was utilized adhering to the principles of ALARA. COMPARISON STUDY: None. FINDINGS: Mild dependent bibasilar atelectasis. Liver spleen and pancreas enhance uniformly. The bowel pattern is considered nonobstructive. The appendix is normal. No significant abdominal pelvic or inguinal adenopathy. Bladder is midline. There multiple pelvic vascular calcifications. No definite calcification associated with the urinary tract is identified. There is no free fluid within the pelvic cul-de-sac. IMPRESSION: No acute process of the abdomen or pelvis. The above report was generated using voice recognition software. It may contain grammatical, syntax or spelling errors. Electronically signed by: Anibal Plunkett M.D. 10/11/2017 1:25 PM Dictated Date/Time: 10/11/2017 1:18 PM
--- NOTE | 2017-10-11 13:38 | DIAGNOSTIC IMAGING REPORT ---
CHEST CTA for PULMONARY ARTERIES CT DOSE: 1454.33 mGycm HISTORY: Atypical chest pain. TECHNIQUE: Multiaxial CT images of the chest were performed following the intravenous administration of contrast to evaluate the pulmonary arteries. Maximal intensity projection images were also obtained. A dose lowering technique was utilized adhering to the principles of ALARA. COMPARISON STUDY: Chest 02/03/2017. FINDINGS: There is a normal caliber thoracic aorta with no evidence for dissection. There is no evidence for pulmonary embolus. No pleural effusions. No pneumothorax. The liver and spleen are unremarkable. No mediastinal or hilar lymphadenopathy. The central airways are patent. Mild dependent changes seen within the lower lobes posteriorly. Punctate calcified granuloma within the right lower lobe. No focal lung consolidations to suggest. IMPRESSION: No evidence for pulmonary embolus. Electronically signed by: Sean Domingo M.D. 10/11/2017 1:37 PM Dictated Date/Time: 10/11/2017 1:30 PM
--- NOTE | 2017-10-11 14:56 | EMERGENCY ROOM VISIT NOTE ---
History Report prepared by La: Grey Peterson Under the Supervision of: Dr. Marcos Holley D.O. First contact with patient: 11:38 Chief Complaint: CHEST PAIN Stated Complaint: DIZZY,NAUSEA,CHEST PAIN Nursing Triage Summary: Pt c/o dizziness, SOB, and CP after [place] the [place]. Walked on treadmill last for 45 minutes and did not have any symptoms. History of Present Illness The patient is a 52 year old female who presents to the Emergency Room with complaints of resolved chest pain starting around 0930 this morning. The patient states that she was walking home from the post office when she got light headed, hot, clammy, nauseous, and then she got this burning diffuse chest pain. The patient additionally reports that she has been having some right sided abdominal pain for the past two weeks which comes and goes, and she is not currently having any pain. She states that she recently just got over a UTI, and she is not taking any antibiotics. The patient denies any history of hypertension, hyperlipidemia, and diabetes. She is a former smoker, and she has no previous heart disease, and she has had no recent stress tests or catheterizations. She denies family history of heart disease. Patient denies swelling of calves, recent trips, history of immobilization or recent surgery, prior history of DVT, hemoptysis, history of malignancy, history of smoking, or control/estrogen use. Pt denies headache, change in vision, fevers, cough , runny nose, chest pain, shortness of breath, arm pain, jaw pain, nausea, vomiting, diarrhea, pain with urination, and melena. Source of History: patient Onset: 0930 Position: chest Quality: burning Timing: resolved Associated Symptoms: + nausea, No SOB Note: Associated symptoms: light headed, hot, clammy Review of Systems See HPI for pertinent positives & negatives. A total of 10 systems reviewed and were otherwise negative. Past Medical & Surgical Medical Problems: (1) No pertinent past medical history Surgical Problems: (1) S/P total thyroidectomy Family History No pertinent family history Social History Smoking Status: Former Smoker Drug Use: none Marital Status: Housing Status: lives with family Current/Historical Medications Scheduled Acetaminophen (Tylenol), 325 MG PO PRN B-Complex Vitamins (B Complex), 1 CAP PO DAILY Cholecalciferol (Vitamin D3), 1 CAP PO QAM Cranberry (Vaccinium Macrocarp (Cranberry), 500 MG PO DAILY Duloxetine Hcl (Cymbalta), 30 MG PO QPM Levothyroxine Sodium (Levothyroxine Sodium), 88 MCG PO DAILY Pantoprazole (Protonix), 40 MG PO QAM Ranitidine (Zantac), 150 MG PO QPM PRN Topiramate (Topamax), 50 MG PO BID Scheduled PRN Albuterol Hfa (Ventolin Hfa), 1-2 PUFFS INH Q6H PRN for RN Diphenhydramine Hcl (Benadryl), 25 MG PO HS PRN for Sleep Lorazepam (Ativan), 0.5-1 MG PO HS PRN for RN Allergies Coded Allergies: Levofloxacin (Verified Allergy, Severe, HIVES,SOB DIFFICULTY SWALLOWING, ) Nitrofurantoin (Verified Allergy, Mild, HIVES, 10/11/17) Penicillins (Verified Allergy, Mild, HIVES, 10/11/17) Sulfa Antibiotics (Verified Allergy, Mild, "SULFA DRUGS": HIVES, 10/11/17) Physical Exam Vital Signs Date Time Temp Pulse Resp B/P (MAP) Pulse Ox O2 Delivery O2 Flow Rate FiO2 10/11/17 14:30 87 18 115/77 98 Room Air 10/11/17 13:13 69 18 115/71 99 Room Air 10/11/17 12:47 64 17 121/82 97 Room Air 10/11/17 11:38 72 10/11/17 11:36 Room Air 10/11/17 11:15 97 Room Air 10/11/17 11:15 67 16 120/84 97 Room Air 10/11/17 11:00 36.4 74 18 134/90 99 Room Air Physical Exam GENERAL: Sitting up in bed, alert, well appearing, well nourished, no distress, non-toxic EYE EXAM: normal conjunctiva. PERRL and EOM's intact. OROPHARYNX: no exudate, no erythema, lips, buccal mucosa, and tongue normal and mucous membranes are moist NECK: supple, no nuchal rigidity, no adenopathy, non-tender LUNGS: Clear to auscultation. Normal chest wall mechanics HEART: no murmurs, S1 normal and S2 normal ABDOMEN: abdomen soft, non-tender, normo-active bowel sounds, no masses, no rebound or guarding. BACK: Back is symmetrical on inspection and there is no deformity, no midline tenderness, no CVA tenderness. SKIN: no rashes and no bruising UPPER EXTREMITIES: Radial pulses are equal bilaterally. Upper extremities are grossly normal. LOWER EXTREMITIES: Calves are equal bilaterally. No pitting edema. NEURO EXAM: Normal sensorium, cranial nerves II-XII intact, normal speech, no weakness of arms, no weakness of legs. No drift. Finger to nose intact. Gross sensation intact. Medical Decision & Procedures ER Provider Diagnostic Interpretation: Radiology results as stated below per my review and the radiologist's interpretation: CHEST ONE VIEW PORTABLE HISTORY: Atypical Chest Pain COMPARISON: Chest 09/21/2016. FINDINGS: The lungs are clear. Cardiac silhouette is normal in size. No pleural effusions. No pneumothorax. IMPRESSION: No acute process. Electronically signed by: Sean Domingo M.D. 10/11/2017 12:09 PM Dictated Date/Time: 10/11/2017 12:07 PM CHEST CTA for PULMONARY ARTERIES CT DOSE: 1454.33 mGycm HISTORY: Atypical chest pain. TECHNIQUE: Multiaxial CT images of the chest were performed following the intravenous administration of contrast to evaluate the pulmonary arteries. Maximal intensity projection images were also obtained. A dose lowering technique was utilized adhering to the principles of ALARA. COMPARISON STUDY: Chest 02/03/2017. FINDINGS: There is a normal caliber thoracic aorta with no evidence for dissection. There is no evidence for pulmonary embolus. No pleural effusions. No pneumothorax. The liver and spleen are unremarkable. No mediastinal or hilar lymphadenopathy. The central airways are patent. Mild dependent changes seen within the lower lobes posteriorly. Punctate calcified granuloma within the right lower lobe. No focal lung consolidations to suggest. IMPRESSION: No evidence for pulmonary embolus. Electronically signed by: Sean Domingo M.D. 10/11/2017 1:37 PM Dictated Date/Time: 10/11/2017 1:30 PM ABD/PELVIS IV CONTRAST ONLY CT DOSE: HISTORY: Pain. Nausea. abd pain rlq TECHNIQUE: Multiaxial CT images of the abdomen and pelvis were performed following the use of intravenous contrast. A dose lowering technique was utilized adhering to the principles of ALARA. COMPARISON STUDY: None. FINDINGS: Mild dependent bibasilar atelectasis. Liver spleen and pancreas enhance uniformly. The bowel pattern is considered nonobstructive. The appendix is normal. No significant abdominal pelvic or inguinal adenopathy. Bladder is midline. There multiple pelvic vascular calcifications. No definite calcification associated with the urinary tract is identified. There is no free fluid within the pelvic cul-de-sac. IMPRESSION: No acute process of the abdomen or pelvis. The above report was generated using voice recognition software. It may contain grammatical, syntax or spelling errors. Electronically signed by: Anibal Plunkett M.D. 10/11/2017 1:25 PM Dictated Date/Time: 10/11/2017 1:18 PM Laboratory Results 10/11/17 11:15 Red Blood Count 4.89, Mean Corpuscular Volume 88.1, Mean Corpuscular Hemoglobin 30.1, Mean Corpuscular Hemoglobin Concent 34.1, Mean Platelet Volume 9.5, Neutrophils (%) (Auto) 51.8, Lymphocytes (%) (Auto) 32.4, Monocytes (%) (Auto) 9.0, Eosinophils (%) (Auto) 5.3, Basophils (%) (Auto) 1.3, Neutrophils # (Auto) 2.37, Lymphocytes # (Auto) 1.48, Monocytes # (Auto) 0.41, Eosinophils # (Auto) 0.24, Basophils # (Auto) 0.06 10/11/17 11:15 Test 10/11/17 11:15 10/11/17 14:30 White Blood Count 4.57 K/uL (4.8-10.8) Red Blood Count 4.89 M/uL (4.2-5.4) Hemoglobin 14.7 g/dL (12.0-16.0) Hematocrit 43.1 % (37-47) Mean Corpuscular Volume 88.1 fL (80-100) Mean Corpuscular Hemoglobin 30.1 pg (25-34) Mean Corpuscular Hemoglobin Concent 34.1 g/dl (32-36) Platelet Count 253 K/uL (130-400) Mean Platelet Volume 9.5 fL (7.4-10.4) Neutrophils (%) (Auto) 51.8 % Lymphocytes (%) (Auto) 32.4 % Monocytes (%) (Auto) 9.0 % Eosinophils (%) (Auto) 5.3 % Basophils (%) (Auto) 1.3 % Neutrophils # (Auto) 2.37 K/uL (1.4-6.5) Lymphocytes # (Auto) 1.48 K/uL (1.2-3.4) Monocytes # (Auto) 0.41 K/uL (0.11-0.59) Eosinophils # (Auto) 0.24 K/uL (0-0.5) Basophils # (Auto) 0.06 K/uL (0-0.2) RDW Standard Deviation 43.7 fL (36.4-46.3) RDW Coefficient of Variation 13.5 % (11.5-14.5) Immature Granulocyte % (Auto) 0.2 % Immature Granulocyte # (Auto) 0.01 K/uL (0.00-0.02) D-Dimer 1470 ug/L FEU (0-500) Anion Gap 6.0 mmol/L (3-11) Est Creatinine Clear Calc Drug Dose 65.9 ml/min Estimated GFR () 61.0 Estimated GFR (Non- 52.6 BUN/Creatinine Ratio 17.7 (10-20) Calcium Level 9.7 mg/dl (8.5-10.1) Total Creatine Kinase 111 U/L (26-192) Creatine Kinase MB < 0.5 ng/ml (0.5-3.6) Creatine Kinase MB Ratio (0-3.0) Troponin I < 0.015 ng/ml (0-0.045) Laboratory results per my review. Medications Administered Medications (Trade) Dose Ordered Sig/Stan Route Start Time Stop Time Status Last Admin Dose Admin Sodium Chloride 1,000 ml @ 999 mls/hr Q1H1M STAT IV 10/11/17 11:49 10/11/17 12:49 DC 10/11/17 11:58 999 MLS/HR Ondansetron HCl (Zofran Inj) 4 mg NOW STAT IV 10/11/17 12:38 10/11/17 12:39 DC 10/11/17 12:46 4 MG ECG Per My Interpretation Indication: chest pain Rate (beats per minute): 79 Rhythm: sinus rhythm Findings: no ectopy, other (normal axis) ED Course ED COURSE: Vital signs were reviewed and showed normal vitals The patients medical record was reviewed The above diagnostic studies were performed and reviewed. ED treatments and interventions as stated above. 1138: The patient was evaluated in room C9. A complete history and physical examination was performed. 1149: Sodium Chloride 1000 ml @ 999 mls/hr IV 1238: I reevaluated the patient, and she went up to the bathroom and got light headed again. I ordered Zofran 4mg IV 1412: I reassessed the patient, and she states that she went to the bathroom, and she was asymptomatic 1515: Upon reevaluation, the patient is doing well.I discussed my findings with the patient and she understands and agrees with the treatment plan. Based on the patients age, coexisting illnesses, exam and lab findings the decision to treat as an outpatient was made. The patient remained stable while under my care. The patient appeared well at the time of discharge. Medical Decision Differential diagnoses includes but is not limited to acute coronary syndrome, myocardial infarction, pericarditis, pulmonary embolus, aortic dissection, pneumonia, pneumothorax, musculoskeletal, shingles, esophageal. Patient is a 52-year-old female who presents to the ER for feeling of lightheadedness. [place] got up she felt lightheaded and clammy. She felt like she was going to pass out. Following this she had a mild burning in her chest. Upon presentation to the ER she is completely at her baseline. Symptoms were reproducible at bedside when I had her sit up. She was not given aspirin as I do not feel that this is cardiac. CBC along with BMP and troponin 2 were unremarkable. D-dimer was elevated. She became lightheaded twice while in the ER with changing positions going from laying to sitting. CT of the chest and abdomen were negative for any acute pathology. CT of the abdomen was performed and she notes over the past 10 days she has had intermittent right lower quadrant abdominal pain. She has halves with no pain today but per her request I did CT the abdomen. CT of the chest showed no PEs. No urinary symptoms. EKG was unremarkable. Based on her presentation she is low risk per heart score. Explained risk and benefits of admission versus discharge. With informed decision-making patient elected to go home as she feels completely back to baseline. I do favor this is likely not cardiac. She does exercise on the treadmill daily and has no chest pain or shortness of breath with this. She did feel slightly better following fluids. I do favor this is secondary to hydration but cannot be certain. Recommended no physical activity until she is evaluated by her PCP within the next 2 days. Discussed with Pt concerning signs and symptoms to watch out for. Pt was instructed to follow up with their PCP and discussed with the patient their option to return to the ED at anytime for persistent or worsening symptoms. The appropriate anticipatory guidance and out-patient management, including indications for return to the emergency department, were explained at length to the patient and understood. Medication Reconcilliation Current Medication List: was personally reviewed by me Blood Pressure Screening Patient's blood pressure: Normal blood pressure Impression Primary Impression: Light-headed Additional Impression: Precordial chest pain Scribe Attestation The scribe's documentation has been prepared under my direction and personally reviewed by me in its entirety. I confirm that the note above accurately reflects all work, treatment, procedures, and medical decision making performed by me. Departure Information Dispostion Home / Self-Care Referrals Mikie Waters M.D. (PCP) Forms Call Back Authorization, HOME CARE DOCUMENTATION FORM, IMPORTANT VISIT INFORMATION, Work Instructions Patient Instructions Chest Pain - [facility], Dizziness Fainting Poss Causes, [facility] Additional Instructions Please follow up with your primary care doctor with in the next 24 hours. Any worsening of your symptoms, please return to the ED immediately. This includes any fevers greater than 100.4, worsening pain, chest pain, shortness breath, persistent nausea, vomiting, unable to eat or drink, or any other concerning signs or symptoms from your standpoint. Please refrain from driving until he feel completely back to baseline. If at any point your chest pain recurs and/or start to have exertional shortness of breath you need to return to the ER immediately. Please refrain from any physical activity until he follow-up with the primary care doctor Problem Qualifiers
[2017-10-11 15:59] VITALS: BP 112/77; PULSE 80; O2SAT 98
== END 2017-10-11 15:50 | disposition home or self-care (01) ==
LOC: C.EDB 11:00 → C.EDC 15:50
DX: R42 Dizziness and giddiness (principal); R07.2 Precordial pain; Z87.891 Personal history of nicotine dependence

== ENCOUNTER → 2017-10-13 | Outpatient (CLI) | payer OTHER ==
[~2017-10-13] MED LIST changes: +B-CO1CAP3 PO; +CRAN500C2 PO; +LEVO88TA3 PO
[2017-10-18 13:34] LABS: HERPES SIMPLEX VIRUS CULT ISOLATED (NOT ISOLATED)
== END | disposition home or self-care (01) ==
LOC: C.LABSPEC 17:26
PROVIDERS: ATTEND Physician Assistant
DX: N76.6 Ulceration of vulva (principal)

== ENCOUNTER → 2017-10-19 | Outpatient (CLI) | payer OTHER ==
[2017-10-19 17:57] LABS: HEP C IGG 13 YRS+OLDER_RFLX NEG (NEG)
== END | disposition home or self-care (01) ==
LOC: C.LAB1850 15:52
PROVIDERS: ATTEND Physician Assistant
DX: Z20.2 Contact with and (suspected) exposure to infections with a predominantly sexual mode of transmission (principal)

== ENCOUNTER → 2017-10-19 | Outpatient (CLI) | payer OTHER | END | disposition home or self-care (01) | LOC: C.LAB 10:35 | PROVIDERS: ATTEND Internal Medicine Endocrinology, Diabetes & Metabolism | DX: E89.0 Postprocedural hypothyroidism (principal) ==

== ENCOUNTER 2017-12-18 15:25 | Emergency (ER) | payer OTHER ==
[~2017-12-18] VITALS: Ht 170.2 cm; Wt 100.0 kg
[2017-12-18 15:32] VITALS: TEMP 36.7; Ht 170.2 cm; Wt 100.0 kg
[2017-12-18] MEDS ORDERED: SODIUM CHLORIDE 0.9% 1000ML 1,000 ML IV STA (15:46)
[2017-12-18 16:10] VITALS: O2SAT 96
[2017-12-18] MEDS ORDERED: LEVO88TA3 PO (16:12)
[2017-12-18 16:47] LABS: BASO % 0.5 %; BASO ABS # 0.05 K/uL (0-0.2); EOS % 2.5 %; EOS ABS # 0.24 K/uL (0-0.5); HEMATOCRIT 42.6 % (37-47); HEMOGLOBIN 14.2 g/dL (12.0-16.0); LYMPH % 13.9 %; LYMPH ABS # 1.33 K/uL (1.2-3.4); MEAN CORPUSCULAR HEMOGLOBIN 29.3 pg (25-34); MEAN CORPUSCULAR HGB CONC 33.3 g/dl (32-36); MEAN PLATELET VOLUME 9.1 fL (7.4-10.4); MONO ABS # 0.57 K/uL (0.11-0.59); NEUT % 77.1 %; NEUT ABS # 7.36 K/uL (1.4-6.5); PLATELET COUNT 281 K/uL (130-400); RED CELL DISTRIBUTION WIDTH CV 13.7 % (11.5-14.5); RED CELL DISTRIBUTION WIDTH SD 44.2 fL (36.4-46.3); WHITE BLOOD COUNT 9.55 K/uL (4.8-10.8)
--- NOTE | 2017-12-18 16:47 | DIAGNOSTIC IMAGING REPORT ---
SINGLE VIEW CHEST CLINICAL HISTORY: Change in mental status. Generalized weakness. FINDINGS: An AP, portable, upright chest radiograph is compared to chest x-ray and chest CT dated 10/11/2017. The examination is degraded by portable technique and patient rotation. The cardiomediastinal silhouette is unremarkable. Chronic interstitial thickening is similar to previous. No airspace consolidation or large pleural effusion is identified. No pneumothorax is seen. The skeletal structures are osteopenic. The bony thorax is grossly intact. IMPRESSION: No active disease in the chest. Electronically signed by: Rubio Blake M.D. 12/18/2017 4:46 PM Dictated Date/Time: 12/18/2017 4:45 PM
[2017-12-18 17:00] LABS: ALBUMIN 3.7 gm/dl (3.4-5.0); ALT/SGPT 30 U/L (12-78); AST/SGOT 15 U/L (15-37); BLOOD UREA NITROGEN 21 mg/dl (7-18); CALCIUM 8.6 mg/dl (8.5-10.1); CARBON DIOXIDE 26 mmol/L (21-32); GLUCOSE 94 mg/dl (70-99); POTASSIUM 3.9 mmol/L (3.5-5.1); SODIUM 141 mmol/L (136-145)
[2017-12-18 17:09] LABS: ALKALINE PHOSPHATASE 134 U/L (45-117); INR 0.9 (0.9-1.1); PTT PATIENT 26.2 SECONDS (21.0-31.0); TOTAL PROTEIN 7.7 gm/dl (6.4-8.2)
[2017-12-18 18:00] VITALS: BP 153/93; PULSE 66; O2SAT 98
--- NOTE | 2017-12-18 18:48 | EMERGENCY ROOM VISIT NOTE ---
History Report prepared by La: Sultana Hearn Under the Supervision of: Dr. Tony Leonardo D.O. First contact with patient: 15:36 Chief Complaint: HYPOGLYCEMIA Stated Complaint: LOW BLOOD SUGAR,SHAKINESS,NAUSEA,WEAK History of Present Illness The patient is a 52 year old female who presents to the Emergency Room with complaints of persistent weakness starting 2 days ago. The patient has had a thyroidectomy and is on levothyroxine. She had regular blood work last week which found that her TSH was 4.7. Her levothyroxine was increased. The patient reports that she started feeling shaky, weak, and lightheaded 2 days ago. She is concerned that her blood sugar is dropping low. She checked her blood sugar and found that it was in the 80s. She ate a meal and it increased to 118 before dropping down in 87 within an hour. The lowest her blood sugar got was 74. She has felt nauseous. She has had loose frequent bowel movements. She called her electronic equipment trades worker who thought that her symptoms were not thyroid related. She feels like her personality has changed for the past week. She has had a rash for a couple months which seemed to worsen with the increased dose of levothyroxine. She has felt warm intermittently. She denies any diaphoresis. She denies any history of problems with her parathyroid. She has had a tubal ligation and ablation. She has not had a period since the ablation. She denies any tobacco or alcohol use. She denies any other new medications. Source of History: patient Onset: 2 days ago Position: other (generalized) Quality: other (weakness) Timing: other (persistent) Associated Symptoms: + fatigue, + rash, No diaphoresis Note: Pt reports shakiness, personality change, lightheadedness. Review of Systems See HPI for pertinent positives & negatives. A total of 10 systems reviewed and were otherwise negative. Past Medical & Surgical Medical Problems: (1) No pertinent past medical history Surgical Problems: (1) S/P endometrial ablation (2) S/P total thyroidectomy (3) S/P tubal ligation Family History Cancer Gallbladder disease Kidney disease Kidney stones Lung disease Social History Smoking Status: Never Smoker Drug Use: none Marital Status: Housing Status: lives with family Current/Historical Medications Scheduled Acetaminophen (Tylenol), 325 MG PO PRN B-Complex Vitamins (B Complex), 1 CAP PO DAILY Cholecalciferol (Vitamin D3), 1 CAP PO QAM Cranberry (Vaccinium Macrocarp (Cranberry), 500 MG PO DAILY Duloxetine Hcl (Cymbalta), 30 MG PO QPM Levothyroxine Sodium (Levothyroxine Sodium), 88 MCG PO 6XWK Levothyroxine Sodium (Levothyroxine Sodium), 132 MCG PO WK Pantoprazole (Protonix), 40 MG PO QAM Ranitidine (Zantac), 150 MG PO QPM PRN Topiramate (Topamax), 50 MG PO BID Scheduled PRN Albuterol Hfa (Ventolin Hfa), 1-2 PUFFS INH Q6H PRN for RN Diphenhydramine Hcl (Benadryl), 25 MG PO HS PRN for Sleep Lorazepam (Ativan), 0.5-1 MG PO HS PRN for RN Allergies Coded Allergies: Levofloxacin (Verified Allergy, Severe, HIVES,SOB DIFFICULTY SWALLOWING, ) Nitrofurantoin (Verified Allergy, Mild, HIVES, 12/18/17) Penicillins (Verified Allergy, Mild, HIVES, 12/18/17) Sulfa Antibiotics (Verified Allergy, Mild, "SULFA DRUGS": HIVES, 12/18/17) Physical Exam Vital Signs Date Time Temp Pulse Resp B/P (MAP) Pulse Ox O2 Delivery O2 Flow Rate FiO2 12/18/17 18:00 66 18 153/93 98 Room Air 12/18/17 16:15 88 12/18/17 16:10 96 Room Air 12/18/17 16:10 85 18 140/92 96 Room Air 91 153/98 110 153/93 12/18/17 15:32 36.7 98 18 142/93 99 Room Air Physical Exam GENERAL: Patient is awake, alert, and in no acute distress. Patient is resting comfortably and showing no signs of anxiety EYES: The conjunctivae are clear. The pupils are round and reactive. EARS, NOSE, MOUTH AND THROAT: The nose is without any evidence of any deformity. Mucous membranes are moist tongue is midline NECK: The neck is nontender and supple. RESPIRATORY: Normal respiratory effort is noted there is no evidence of wheezing rhonchi or rales CARDIOVASCULAR: Tachycardic rate was noted with regular rhythm. No definite murmur was appreciated. GASTROINTESTINAL: The abdomen is soft. Bowel sounds are present in all quadrants. Abdomen is nontender PELVIS: The Pelvis is stable. No tenderness to palpation is noted. BACK: No midline tenderness or or step-off noted range of motion in flexion extension as well as rotation no signs of muscle spasm noted MUSCULOSKELETAL/EXTREMITIES: There is no evidence of gross deformity full range of motion is noted in the hips and shoulders SKIN: There is no obvious evidence of any rash. There are no petechiae, pallor or cyanosis noted. NEUROLOGIC: Patient is awake alert and oriented x3 strength is symmetric patellar reflexes are 2+ bilaterally Medical Decision & Procedures ER Provider Diagnostic Interpretation: X-ray results as stated below per interpretation by me and the radiologist. SINGLE VIEW CHEST CLINICAL HISTORY: Change in mental status. Generalized weakness. FINDINGS: An AP, portable, upright chest radiograph is compared to chest x-ray and chest CT dated 10/11/2017. The examination is degraded by portable technique and patient rotation. The cardiomediastinal silhouette is unremarkable. Chronic interstitial thickening is similar to previous. No airspace consolidation or large pleural effusion is identified. No pneumothorax is seen. The skeletal structures are osteopenic. The bony thorax is grossly intact. IMPRESSION: No active disease in the chest. Electronically signed by: Rubio Blake M.D. 12/18/2017 4:46 PM Dictated Date/Time: 12/18/2017 4:45 PM Laboratory Results 12/18/17 15:58 Red Blood Count 4.84, Mean Corpuscular Volume 88.0, Mean Corpuscular Hemoglobin 29.3, Mean Corpuscular Hemoglobin Concent 33.3, Mean Platelet Volume 9.1, Neutrophils (%) (Auto) 77.1, Lymphocytes (%) (Auto) 13.9, Monocytes (%) (Auto) 6.0, Eosinophils (%) (Auto) 2.5, Basophils (%) (Auto) 0.5, Neutrophils # (Auto) 7.36, Lymphocytes # (Auto) 1.33, Monocytes # (Auto) 0.57, Eosinophils # (Auto) 0.24, Basophils # (Auto) 0.05 12/18/17 15:58 Test 12/18/17 15:42 12/18/17 15:58 12/18/17 16:00 Bedside Glucose 121 mg/dl (70-90) White Blood Count 9.55 K/uL (4.8-10.8) Red Blood Count 4.84 M/uL (4.2-5.4) Hemoglobin 14.2 g/dL (12.0-16.0) Hematocrit 42.6 % (37-47) Mean Corpuscular Volume 88.0 fL (80-100) Mean Corpuscular Hemoglobin 29.3 pg (25-34) Mean Corpuscular Hemoglobin Concent 33.3 g/dl (32-36) Platelet Count 281 K/uL (130-400) Mean Platelet Volume 9.1 fL (7.4-10.4) Neutrophils (%) (Auto) 77.1 % Lymphocytes (%) (Auto) 13.9 % Monocytes (%) (Auto) 6.0 % Eosinophils (%) (Auto) 2.5 % Basophils (%) (Auto) 0.5 % Neutrophils # (Auto) 7.36 K/uL (1.4-6.5) Lymphocytes # (Auto) 1.33 K/uL (1.2-3.4) Monocytes # (Auto) 0.57 K/uL (0.11-0.59) Eosinophils # (Auto) 0.24 K/uL (0-0.5) Basophils # (Auto) 0.05 K/uL (0-0.2) RDW Standard Deviation 44.2 fL (36.4-46.3) RDW Coefficient of Variation 13.7 % (11.5-14.5) Immature Granulocyte % (Auto) 0.0 % Immature Granulocyte # (Auto) 0.00 K/uL (0.00-0.02) Prothrombin Time 9.8 SECONDS (9.0-12.0) Prothromb Time International Ratio 0.9 (0.9-1.1) Activated Partial Thromboplast Time 26.2 SECONDS (21.0-31.0) Partial Thromboplastin Ratio 1.0 Anion Gap 7.0 mmol/L (3-11) Est Creatinine Clear Calc Drug Dose 79.1 ml/min Estimated GFR () 74.5 Estimated GFR (Non- 64.3 BUN/Creatinine Ratio 20.7 (10-20) Calcium Level 8.6 mg/dl (8.5-10.1) Magnesium Level 1.9 mg/dl (1.8-2.4) Total Bilirubin 0.3 mg/dl (0.2-1) Direct Bilirubin < 0.1 mg/dl (0-0.2) Aspartate Amino Transf (AST/SGOT) 15 U/L (15-37) Alanine Aminotransferase (ALT/SGPT) 30 U/L (12-78) Alkaline Phosphatase 134 U/L (45-117) Troponin I < 0.015 ng/ml (0-0.045) Total Protein 7.7 gm/dl (6.4-8.2) Albumin 3.7 gm/dl (3.4-5.0) Thyroid Stimulating Hormone (TSH) 5.360 uIu/ml (0.300-4.500) Free Thyroxine 1.07 ng/dl (0.80-1.60) Human Chorionic Gonadotropin, Qual NEG (NEG) Urine Color YELLOW Urine Appearance CLEAR (CLEAR) Urine pH 6.5 (4.5-7.5) Urine Specific [place] 1.009 (1.000-1.030) Urine Protein NEG (NEG) Urine Glucose (UA) NEG (NEG) Urine Ketones NEG (NEG) Urine Occult Blood NEG (NEG) Urine Nitrite NEG (NEG) Urine Bilirubin NEG (NEG) Urine Urobilinogen NEG (NEG) Urine Leukocyte Esterase NEG (NEG) Laboratory results per my review. Medications Administered Medications (Trade) Dose Ordered Sig/Stan Route Start Time Stop Time Status Last Admin Dose Admin Sodium Chloride 1,000 ml @ 999 mls/hr Q1H1M STAT IV 12/18/17 15:46 12/18/17 16:46 DC 12/18/17 16:15 999 MLS/HR ECG Per My Interpretation Indication: weakness Rate (beats per minute): 82 Rhythm: normal sinus Findings: no ectopy, other (no acute ST segment abnormality) Comparison ECG Date: 11-Oct-2017 Change: no significant change ED Course 1540: The patient was evaluated in room B12B. A complete history and physical examination were performed. 1546: NSS 1,000 ml @ 999 mls/hr IV. 1810: Upon reevaluation, the patient is resting comfortably. I discussed the results and treatment plan with her. She verbalized agreement of the treatment plan. She will follow up with her providers. She was discharged home. Medical Decision Prior records/ancillary studies reviewed and summarized above. Nursing notes reviewed. Additional history obtained from significant other. The patient's history was concerning for weakness. Differential diagnosis: Etiologies such as metabolic, infection, hypo/hyperglycemia, electrolyte abnormalities, cardiac sources, intracerebral event, toxicologic, neurologic, as well as others were entertained. The patient is a 52-year-old female who presented to the emergency department for generalized weakness and shakiness. The patient thought her blood sugar could be low. She did have changes to her thyroid medication recently. I discussed the patient's laboratory and radiographic studies with her. She was encouraged to rest and avoid any strenuous activity. She was also encouraged to continue all medications as prescribed. She was also encouraged to follow- up with her electronic equipment trades worker but return to the emergency department immediately if symptoms change worsening the need arises. Medication Reconcilliation Current Medication List: was personally reviewed by me Blood Pressure Screening Patient's blood pressure: Elevated blood pressure Blood pressure disposition: Referred to PCP Impression Primary Impression: Weakness Scribe Attestation The scribe's documentation has been prepared under my direction and personally reviewed by me in its entirety. I confirm that the note above accurately reflects all work, treatment, procedures, and medical decision making performed by me. Departure Information Dispostion Home / Self-Care Referrals Mikie Waters M.D. (PCP) Forms HOME CARE DOCUMENTATION FORM, IMPORTANT VISIT INFORMATION, WORK / SCHOOL INSTRUCTIONS Patient Instructions [facility] Additional Instructions Call your family doctor in the morning to schedule a follow-up appointment. Continue all medications as prescribed. Drink plenty clear liquids. Rest and avoid any strenuous activity.
== END 2017-12-18 18:25 | disposition home or self-care (01) ==
LOC: C.EDB 15:27
DX: R53.1 Weakness (principal); R00.0 Tachycardia, unspecified; R03.0 Elevated blood-pressure reading, without diagnosis of hypertension; E89.0 Postprocedural hypothyroidism; Z88.0 Allergy status to penicillin; Z88.1 Allergy status to other antibiotic agents; Z88.2 Allergy status to sulfonamides; Z79.899 Other long term (current) drug therapy

== ENCOUNTER → 2018-04-03 | Outpatient (CLI) | payer OTHER ==
--- NOTE | 2018-04-03 15:54 | DIAGNOSTIC IMAGING REPORT ---
R WRIST MIN 3 VIEWS ROUTINE CLINICAL HISTORY: 52 years-old Female presenting with M25.539 right wrist pain, possible arthritis. TECHNIQUE: Frontal, bilateral oblique, and lateral views of the right wrist were obtained. COMPARISON: None. FINDINGS: No acute fracture or malalignment. No advanced degenerative change. No radiographic soft tissue abnormality. IMPRESSION: No acute osseous injury. Electronically signed by: Matteo Díaz M.D. 04/03/2018 3:53 PM Dictated Date/Time: 04/03/2018 3:52 PM
== END | disposition home or self-care (01) ==
LOC: C.RAD1850 15:43
PROVIDERS: ATTEND Hospitalist
DX: M25.539 Pain in unspecified wrist (principal)